=== PATIENT | male | born 1935 | race Caucasian/White ===

== ENCOUNTER 2017-02-03 04:51 | Inpatient (IN) | payer MEDICARE, BC ==
[2017-02-03] MEDS ORDERED: Sodium Chloride 0.9% 10 ML Syringe FLUSH PRN (05:18)
--- NOTE | 2017-02-03 05:49 | EDM.PDOC ---
ED HPI GENERAL MEDICAL PROBLEM - General Chief Complaint: General Stated Complaint: groin hurts and arm not working Time Seen by Provider: 02/03/17 05:15 Source of Information: Reports: Patient History Limitations: Reports: No Limitations - History of Present Illness INITIAL COMMENTS - FREE TEXT/NARRATIVE: Started having groin pain, 2 weeks ago. This morning he began having trouble walking and noticed right upper extremity weakness and numbness Onset: Gradual Duration: Week(s):. No: Constant Location: Reports: Upper Extremity, Left, Lower Extremity, Left Quality: Reports: Dull Severity: Moderate Groin Pain Score (Numeric/FACES): 8 - Related Data Allergies Allergy/AdvReac Type Severity Reaction Status Date / Time acetaminophen [From NyQuil] Allergy Itching Verified 02/03/17 04:58 dextromethorphan HBr Allergy Itching Verified 02/03/17 04:58 [From NyQuil] doxylamine succinate Allergy Itching Verified 02/03/17 04:58 [From NyQuil] lisinopril Allergy Itching Verified 02/03/17 04:58 pseudoephedrine HCl Allergy Itching Verified 02/03/17 04:58 [From NyQuil] tape Allergy Cannot Uncoded 02/03/17 04:58 Remember Home Meds: Home Meds Brinzolamide [Azopt 1% Ophth Susp] 1 drop EYEBOTH BID 07/21/14 [History] Travoprost [Travatan Z 0.004% Ophth Soln] 1 drop EYEBOTH DAILY 07/21/14 [History ] Aspirin [Ecotrin] 325 mg PO DAILY 05/09/16 [History] Digoxin 125 mcg PO DAILY 05/09/16 [History] Insulin Aspart [NovoLOG] 6 unit SUBCUT WITHBREAKFAST 05/09/16 [History] Insulin Aspart [NovoLOG] 6 unit SUBCUT WITHDINNER 05/09/16 [History] Losartan [Cozaar] 50 mg PO DAILY 05/09/16 [History] Magnesium 500 mg PO DAILY 05/09/16 [History] Metoprolol Succinate 100 mg PO BID 05/09/16 [History] Nitroglycerin [Nitrostat] 0.4 mg SL ASDIRECTED 05/09/16 [History] Simvastatin [Zocor] 40 mg PO BEDTIME 05/09/16 [History] Triamcinolone Acetonide 0 gm TOP ASDIRECTED PRN 05/09/16 [History] Warfarin [Coumadin] 2.5 mg PO WE 05/09/16 [History] Warfarin [Coumadin] 5 mg PO SUMOTUTHFRSA 05/09/16 [History] Fluconazole [Diflucan] 100 mg PO DAILY #14 tablet 05/11/16 [Rx] hydrOXYzine HCl [Atarax] 25 mg PO TID #60 tablet 05/11/16 [Rx] Past Medical History HEENT History: Reports: Glaucoma Cardiovascular History: Reports: Afib, Bypass, Heart Failure, Heart Valve Replacement, High Cholesterol, Hypertension, IN, Stents Gastrointestinal History: Reports: GERD Genitourinary History: Reports: Retention, Urinary Musculoskeletal History: Reports: Arthritis, Fracture Neurological History: Reports: Neuropathy, Diabetic, Vertigo Endocrine/Metabolic History: Reports: Diabetes, Type II Hematologic History: Reports: Blood Transfusion(s) Dermatologic History: Reports: Benign Melanoma, Other (See Below) Other Dermatologic History: frequent rashes - Past Surgical History Cardiovascular Surgical History: Reports: Coronary Artery Bypass, Coronary Artery Stent, Valve Replacement Musculoskeletal Surgical History: Reports: Hip Replacement Social & Family History - Tobacco Use Smoking Status *Q: Former Smoker Years of Tobacco use: 40 Used Tobacco, but Quit: No Month Tobacco Last Used: 2005 - Recreational Drug Use Recreational Drug Use: No ED ROS GENERAL - Review of Systems Review Of Systems: See Below Constitutional: Reports: No Symptoms HEENT: Reports: No Symptoms Respiratory: Reports: Shortness of Breath, Wheezing GI/Abdominal: Reports: No Symptoms Musculoskeletal: Reports: Leg Pain Skin: Reports: No Symptoms Neurological: Reports: Confusion, Numbness, Difficulty Walking, Weakness Psychiatric: Reports: Anxiety ED EXAM, GENERAL - Physical Exam Exam: See Below Exam Limited By: No Limitations General Appearance: Alert, WD/WN, Anxious Ears: Normal External Exam Nose: Normal Inspection Throat/Mouth: Normal Inspection Head: Atraumatic, Normocephalic Neurological: Abnormal Gait, Abnormal Reflexes, Sensory/Motor Deficit, Other ( Patient is unable to ambulate. He cannot control is right leg, and is very unsteady on his feet. ) Skin Exam: Warm, Dry Course - Vital Signs Last Recorded V/S: Last Vital Signs Temp 97.4 F 02/03/17 04:54 Pulse 97 02/03/17 05:23 Resp 20 02/03/17 04:54 BP 144/99 H 02/03/17 05:23 Pulse Ox 95 02/03/17 04:54 - Orders/Labs/Meds Orders: Active Orders 24 hr Category Date Time Status EKG Documentation Completion [RC] STAT Care 02/03/17 05:24 Active RT Aerosol Therapy [RC] ASDIRECTED Care 02/03/17 06:05 Active Chest 2V [CR] Stat Exams 02/03/17 05:41 Taken Head wo Cont [CT] Stat Exams 02/03/17 05:18 Taken Sodium Chloride 0.9% [Saline Flush] Med 02/03/17 05:18 Active 10 ml FLUSH ASDIRECTED PRN Saline Lock Insert [OM.PC] Routine Oth 02/03/17 05:18 Ordered EKG 12 Lead [EK] Routine Ther 02/03/17 05:18 Stop Req Medication Orders Sodium Chloride (Saline Flush) 10 ml FLUSH ASDIRECTED PRN PRN Reason: Keep Vein Open Labs: Laboratory Tests 02/03/17 02/03/17 02/03/17 Range/Units 05:18 05:18 05:18 WBC 7.5 (5.0-10.0) 10^3/uL RBC 4.68 (4.50-6.00) 10^6/uL Hgb 12.8 L (14.0-18.0) g/dL Hct 41.3 (40.0-54.0) % MCV 88.2 (82.0-94.0) fL MCH 27.4 (27.0-32.0) pg MCHC 31.0 L (33.0-38.0) g/dL RDW Coeff of Shi 13.3 (11.0-15.0) % Plt Count 174 (150-400) 10^3/uL Add Manual Diff Yes Band Neutrophils % 57 H (0-5) % Lymphocytes % (Manual) 18 L (21-55) % Monocytes % (Manual) 24 H (2-12) % Eosinophils % (Manual) 1 (0-5) % Absolute Neutrophils 4.28 (1.80-7.00) 10^3/uL Lymphocytes # (Manual) 1.35 (1.00-4.80) 10^3/uL Monocytes # (Manual) 1.80 H (0.00-0.80) 10^3/uL Eosinophils # (Manual) 0.08 (0.00-0.45) 10^3/uL PT 15.4 H (9.7-12.3) SEC INR 1.41 H (0.92-1.18) D-Dimer, Quantitative 1.57 H (0.00-0.50) Sodium 141 (136-145) mEq/L Potassium 4.1 (3.5-5.0) mEq/L Chloride 103 (98-106) mEq/L Carbon Dioxide 28 (21-32) mmol/L BUN 21 H (7-18) mg/dL Creatinine 1.3 (0.7-1.3) mg/dL Est Cr Clr Drug Dosing 42.38 mL/min Estimated GFR (MDRD) 53 L (>=60) mL/min Glucose 203 H (75-99) mg/dL Calcium 8.5 (8.4-10.1) mg/dL Total Bilirubin 0.9 (0.0-1.0) mg/dL AST 19 (15-37) U/L ALT 20 (12-78) U/L Alkaline Phosphatase 73 (46-116) U/L Ghe-K-Qxjwuzdchhl Pept (0-1000) pg/nL Total Protein 7.5 (6.4-8.2) g/dL Albumin 3.3 L (3.4-5.0) g/dL Urine Color (YELLOW) Urine Appearance (CLEAR) Urine pH (4.5-8.0) Ur Specific [place] (1.003-1.020) Urine Protein (NEGATIVE) mg/dL Urine Glucose (UA) (NEGATIVE) mg/dL Urine Ketones (NEGATIVE) mg/dL Urine Occult Blood (NEGATIVE) Urine Nitrite (NEGATIVE) Urine Bilirubin (NEGATIVE) Urine Urobilinogen (0.2-1.0) EU/dL Ur Leukocyte Esterase (NEGATIVE) Urine RBC (0-5) /HPF Urine WBC (0-5) /HPF Ur Squamous Epith Cells (NOT SEEN) /HPF Amorphous Sediment (NOT SEEN) /HPF 02/03/17 02/03/17 Range/Units 06:05 06:10 WBC (5.0-10.0) 10^3/uL RBC (4.50-6.00) 10^6/uL Hgb (14.0-18.0) g/dL Hct (40.0-54.0) % MCV (82.0-94.0) fL MCH (27.0-32.0) pg MCHC (33.0-38.0) g/dL RDW Coeff of Shi (11.0-15.0) % Plt Count (150-400) 10^3/uL Add Manual Diff Band Neutrophils % (0-5) % Lymphocytes % (Manual) (21-55) % Monocytes % (Manual) (2-12) % Eosinophils % (Manual) (0-5) % Absolute Neutrophils (1.80-7.00) 10^3/uL Lymphocytes # (Manual) (1.00-4.80) 10^3/uL Monocytes # (Manual) (0.00-0.80) 10^3/uL Eosinophils # (Manual) (0.00-0.45) 10^3/uL PT (9.7-12.3) SEC INR (0.92-1.18) D-Dimer, Quantitative (0.00-0.50) Sodium (136-145) mEq/L Potassium (3.5-5.0) mEq/L Chloride (98-106) mEq/L Carbon Dioxide (21-32) mmol/L BUN (7-18) mg/dL Creatinine (0.7-1.3) mg/dL Est Cr Clr Drug Dosing mL/min Estimated GFR (MDRD) (>=60) mL/min Glucose (75-99) mg/dL Calcium (8.4-10.1) mg/dL Total Bilirubin (0.0-1.0) mg/dL AST (15-37) U/L ALT (12-78) U/L Alkaline Phosphatase (46-116) U/L Asr-T-Bzueqiyqiis Pept 3078 H (0-1000) pg/nL Total Protein (6.4-8.2) g/dL Albumin (3.4-5.0) g/dL Urine Color Dark yellow (YELLOW) Urine Appearance Clear (CLEAR) Urine pH 5.5 (4.5-8.0) Ur Specific [place] 1.023 H (1.003-1.020) Urine Protein 100 H (NEGATIVE) mg/dL Urine Glucose (UA) 100 H (NEGATIVE) mg/dL Urine Ketones Negative (NEGATIVE) mg/dL Urine Occult Blood Negative (NEGATIVE) Urine Nitrite Negative (NEGATIVE) Urine Bilirubin Negative (NEGATIVE) Urine Urobilinogen 0.2 (0.2-1.0) EU/dL Ur Leukocyte Esterase Trace H (NEGATIVE) Urine RBC Not seen (0-5) /HPF Urine WBC 20-30 H (0-5) /HPF Ur Squamous Epith Cells Occasional H (NOT SEEN) /HPF Amorphous Sediment Occasional H (NOT SEEN) /HPF Meds: Medications Generic Name Dose Route Start Last Admin Trade Name Freq PRN Reason Stop Dose Admin Sodium Chloride 10 ml 02/03/17 05:18 Saline Flush FLUSH ASDIRECTED PRN Keep Vein Open Discontinued Medications Generic Name Dose Route Start Last Admin Trade Name Freq PRN Reason Stop Dose Admin Levalbuterol HCl 1.25 mg 02/03/17 06:05 02/03/17 06:08 Xopenex NEB 02/03/17 06:06 1.25 mg ONETIME ONE Administration Departure - Departure Time of Disposition: 06:44 Disposition: Admitted As Inpatient 65 Condition: fair Clinical Impression: TIA (transient ischemic attack) - Discharge Information Referrals: Uri Epstein MD [Primary Care Provider] - Forms: ED Department Discharge Additional Instructions: Please use this ER note as My admission H&P - My Orders Last 24 Hours: My Active Orders 02/03/17 05:18 Head wo Cont [CT] Stat Sodium Chloride 0.9% [Saline Flush] 10 ml FLUSH ASDIRECTED PRN Saline Lock Insert [OM.PC] Routine EKG 12 Lead [EK] Routine 02/03/17 05:24 EKG Documentation Completion [RC] STAT 02/03/17 05:41 Chest 2V [CR] Stat 02/03/17 06:05 RT Aerosol Therapy [RC] ASDIRECTED - Assessment/Plan Last 24 Hours: My Active Orders 02/03/17 05:18 Head wo Cont [CT] Stat Sodium Chloride 0.9% [Saline Flush] 10 ml FLUSH ASDIRECTED PRN Saline Lock Insert [OM.PC] Routine EKG 12 Lead [EK] Routine 02/03/17 05:24 EKG Documentation Completion [RC] STAT 02/03/17 05:41 Chest 2V [CR] Stat 02/03/17 06:05 RT Aerosol Therapy [RC] ASDIRECTED
[2017-02-03] MEDS ORDERED: Levalbuterol HCl 1.25 MG/3 ML Neb NEB ONE (06:05)
[2017-02-03] MEDS ORDERED: Ondansetron 4 MG Tab.DIS PO PRN (06:50)
[2017-02-03] MEDS ORDERED: hydrOXYzine HCl 25 MG Tab PO PRN (06:57)
[2017-02-03] MEDS ORDERED: Warfarin 5 MG Tab PO SCH (07:00)
[2017-02-03] MEDS ORDERED: Enoxaparin 40 MG/0.4 ML Syringe SUBCUT SCH (07:00)
[2017-02-03] MEDS ORDERED: Nitroglycerin 0.4 MG Tab.SL SL SCH (07:00)
[2017-02-03] MEDS ORDERED: Furosemide 40 MG/4 ML VIAL IVPUSH SCH (07:15)
[2017-02-03] MEDS ORDERED: Non-Formulary Medication 1 Each (Magnesium [Magnesium] 500 MG) PO SCH (08:00)
[2017-02-03] MEDS ORDERED: INSULIN NPH HUM SQ SCH (08:00)
[2017-02-03] MEDS ORDERED: Non-Formulary Medication 1 Each (Metoprolol Succinate [Metoprolol Succinate] 100 MG) PO SCH (08:00)
[2017-02-03] MEDS ORDERED: Non-Formulary Medication 1 Each (Travoprost [Travatan Z 0.004% Ophth Soln] 1 DROP) EYEBOTH SCH (08:00)
[2017-02-03] MEDS ORDERED: Non-Formulary Medication 1 Each (Losartan [Cozaar] 50 MG) PO SCH (08:00)
[2017-02-03] MEDS ORDERED: [UNRECOGNIZED DRUG - OTHER] SQ SCH (08:00)
[2017-02-03] MEDS ORDERED: Insulin Detemir 100 Units/ML 3 ML Pen SUBCUT SCH (08:00)
[2017-02-03] MEDS ORDERED: REG INSULIN SQ SCH (08:00)
[2017-02-03] MEDS: Aspirin 325 MG Tab.EC PO SCH (08:28)
[2017-02-03] MEDS: Digoxin 125 MCG Tab PO SCH (08:28)
[2017-02-03] MEDS: Non-Formulary Medication 1 Each (Brinzolamide [Azopt 1% Ophth Susp] 1 DROP) EYEBOTH SCH ×2 (08:29→20:02)
[2017-02-03] MEDS: Insulin Aspart 100 Units/ML 3 ML Pen SUBCUT SCH ×4 (08:36→20:28)
[2017-02-03] MEDS: Metoprolol Succinate 100 MG Tab.ER PO SCH ×2 (09:55→20:00)
[2017-02-03] MEDS: Losartan 25 MG Tab PO SCH (09:56)
[2017-02-03] MEDS: Albuterol/Ipratropium 3.0-0.5 MG/3 ML Neb Soln NEB PRN ×2 (17:18→21:56)
[2017-02-03] MEDS ORDERED: Ciprofloxacin 500 MG Tab PO SCH (19:00)
[2017-02-03] MEDS: Ciprofloxacin 500 MG Tab PO SCH (20:00)
[2017-02-03] MEDS: Simvastatin 40 MG Tab PO SCH (20:00)
[2017-02-03] MEDS: Latanoprost 0.005% Ophth Soln 2.5 ML Bottle EYEBOTH SCH (20:01)
[2017-02-03] MEDS: Insulin Detemir 100 Units/ML 3 ML Pen SUBCUT SCH (20:01)
[2017-02-04] MEDS: Non-Formulary Medication 1 Each (Brinzolamide [Azopt 1% Ophth Susp] 1 DROP) EYEBOTH SCH ×2 (07:34→20:02)
[2017-02-04] MEDS: Metoprolol Succinate 100 MG Tab.ER PO SCH ×2 (07:35→19:56)
[2017-02-04] MEDS: Aspirin 325 MG Tab.EC PO SCH (07:35)
[2017-02-04] MEDS: Digoxin 125 MCG Tab PO SCH (07:36)
[2017-02-04] MEDS: Losartan 25 MG Tab PO SCH (07:37)
[2017-02-04] MEDS: Ciprofloxacin 500 MG Tab PO SCH ×2 (07:37→19:56)
[2017-02-04] MEDS: Furosemide 40 MG/4 ML VIAL IVPUSH SCH (07:38)
[2017-02-04] MEDS: Enoxaparin 40 MG/0.4 ML Syringe SUBCUT SCH (07:38)
[2017-02-04] MEDS: Insulin Aspart 100 Units/ML 3 ML Pen SUBCUT SCH ×4 (08:11→20:00)
[2017-02-04] MEDS: Albuterol/Ipratropium 3.0-0.5 MG/3 ML Neb Soln NEB PRN ×3 (09:35→20:00)
[2017-02-04] MEDS ORDERED: Warfarin 5 MG Tab PO SCH (12:00)
--- NOTE | 2017-02-04 12:23 | PCM.PN ---
- General Info Date of Service: 02/04/17 Admission Dx/Problem (Free Text): Sitting up at bedside drinking coffee. Still having significant right sided weakness, and lacks the ability to walk without assistance. At this point I am convinced that he has had a stroke that did not show up on CT. Will order MRI of the brain for this week, then evaluate by PT for rehab, or transfer to another facility for more intensive rehab. Functional Status: Reports: pain controlled - Review of Systems General: Reports: No Symptoms HEENT: Reports: no symptoms Pulmonary: Reports: no symptoms Cardiovascular: Reports: No Symptoms Gastrointestinal: Reports: No symptoms Musculoskeletal: Reports: no symptoms Skin: Reports: no symptoms Neurological: Reports: Difficulty Walking, Weakness, Gait Disturbance Psychiatric: Reports: no symptoms - Patient Data Vitals - most recent: Last Vital Signs Temp 95.7 F 02/04/17 08:00 Pulse 57 L 02/04/17 08:00 Resp 16 02/04/17 08:00 BP 136/75 02/04/17 08:00 Pulse Ox 94 L 02/04/17 08:00 Weight - most recent: 194 lb 1.6 oz I&O - last 24 hours: Intake & Output 02/03/17 02/04/17 02/04/17 22:59 06:59 14:59 Intake Total 500 Output Total 275 Balance 225 Lab Results last 24 hrs: Laboratory Results - last 24 hr 02/03/17 02/03/17 02/04/17 Range/Units 17:13 20:20 07:20 WBC (5.0-10.0) 10^3/uL RBC (4.50-6.00) 10^6/uL Hgb (14.0-18.0) g/dL Hct (40.0-54.0) % MCV (82.0-94.0) fL MCH (27.0-32.0) pg MCHC (33.0-38.0) g/dL RDW Coeff of Shi (11.0-15.0) % Plt Count (150-400) 10^3/uL Neut % (Auto) (35-85) % Lymph % (Auto) (10-55) % [place] % (Auto) (0-16) % Eos % (Auto) (0-5) % Baso % (Auto) (0-3) % Neut # (Auto) (1.80-7.00) 10^3/uL Lymph # (Auto) (1.00-4.80) 10^3/uL [place] # (Auto) (0.00-0.80) 10^3/uL Eos # (Auto) (0.00-0.45) 10^3/uL Baso # (Auto) 10^3/uL Sodium (136-145) mEq/L Potassium (3.5-5.0) mEq/L Chloride (98-106) mEq/L Carbon Dioxide (21-32) mmol/L BUN (7-18) mg/dL Creatinine (0.7-1.3) mg/dL Est Cr Clr Drug Dosing mL/min Estimated GFR (MDRD) (>=60) mL/min Glucose (75-99) mg/dL POC Glucose 198 H 261 H 157 H (75-105) mg/dl Calcium (8.4-10.1) mg/dL Total Bilirubin (0.0-1.0) mg/dL AST (15-37) U/L ALT (12-78) U/L Alkaline Phosphatase (46-116) U/L Total Protein (6.4-8.2) g/dL Albumin (3.4-5.0) g/dL 02/04/17 02/04/17 02/04/17 Range/Units 07:30 07:30 11:38 WBC 8.2 (5.0-10.0) 10^3/uL RBC 4.91 (4.50-6.00) 10^6/uL Hgb 13.6 L (14.0-18.0) g/dL Hct 43.5 (40.0-54.0) % MCV 88.6 (82.0-94.0) fL MCH 27.7 (27.0-32.0) pg MCHC 31.3 L (33.0-38.0) g/dL RDW Coeff of Shi 13.5 (11.0-15.0) % Plt Count 188 (150-400) 10^3/uL Neut % (Auto) 64.9 (35-85) % Lymph % (Auto) 11.3 (10-55) % [place] % (Auto) 20.6 H (0-16) % Eos % (Auto) 2.7 (0-5) % Baso % (Auto) 0.5 (0-3) % Neut # (Auto) 5.35 (1.80-7.00) 10^3/uL Lymph # (Auto) 0.93 L (1.00-4.80) 10^3/uL [place] # (Auto) 1.70 H (0.00-0.80) 10^3/uL Eos # (Auto) 0.22 (0.00-0.45) 10^3/uL Baso # (Auto) 0.04 10^3/uL Sodium 138 (136-145) mEq/L Potassium 3.8 (3.5-5.0) mEq/L Chloride 100 (98-106) mEq/L Carbon Dioxide 29 (21-32) mmol/L BUN 19 H (7-18) mg/dL Creatinine 1.3 (0.7-1.3) mg/dL Est Cr Clr Drug Dosing 42.38 mL/min Estimated GFR (MDRD) 53 L (>=60) mL/min Glucose 164 H (75-99) mg/dL POC Glucose 269 H (75-105) mg/dl Calcium 9.0 (8.4-10.1) mg/dL Total Bilirubin 1.2 H (0.0-1.0) mg/dL AST 19 (15-37) U/L ALT 20 (12-78) U/L Alkaline Phosphatase 76 (46-116) U/L Total Protein 7.7 (6.4-8.2) g/dL Albumin 3.3 L (3.4-5.0) g/dL Med Orders - Current: Current Medications Albuterol/Ipratropium (Duoneb 3.0-0.5 Mg/3 Ml) 3 ml NEB Q4H PRN PRN Reason: Shortness Of Breath/wheezing Last Admin: 02/04/17 09:35 Dose: 3 ml Aspirin (Ecotrin) 325 mg PO DAILY [facility] Last Admin: 02/04/17 07:35 Dose: 325 mg Ciprofloxacin (Ciprofloxacin Hcl) 500 mg PO BID [facility] Last Admin: 02/04/17 07:37 Dose: 500 mg Digoxin (Lanoxin) 125 mcg PO DAILY [facility] Last Admin: 02/04/17 07:36 Dose: 125 mcg Enoxaparin Sodium (Lovenox) 40 mg SUBCUT Q24H [facility] Last Admin: 02/04/17 07:38 Dose: 40 mg Furosemide (Lasix) 40 mg IVPUSH Q24H [facility] Last Admin: 02/04/17 07:38 Dose: 40 mg Hydroxyzine HCl (Atarax) 25 mg PO TID PRN PRN Reason: Itching Last Admin: 02/03/17 08:28 Dose: 25 mg Insulin Aspart (Novolog) 0 unit SUBCUT WITHMEALSANDBED [facility] PRN Reason: Protocol Last Admin: 02/04/17 08:11 Dose: 2 units Insulin Detemir (Levemir) 20 unit SUBCUT BEDTIME [facility] Last Admin: 02/03/17 20:01 Dose: 20 units Latanoprost (Xalatan 0.005% Ophth Soln) 0 ml EYEBOTH BEDTIME [facility] Last Admin: 02/03/17 20:01 Dose: 1 drop Losartan Potassium (Cozaar) 50 mg PO DAILY [facility] Last Admin: 02/04/17 07:37 Dose: 50 mg Magnesium Oxide (Magnesium Oxide) 500 mg PO DAILY@1200 [facility] Last Admin: 02/03/17 12:07 Dose: 500 mg Metoprolol Succinate (Toprol Xl) 100 mg PO BID [facility] Last Admin: 02/04/17 07:35 Dose: 100 mg Nitroglycerin (Nitrostat) 0.4 mg SL ASDIRECTED [facility] Non-Formulary Medication (Brinzolamide [Azopt 1% Ophth Susp]) 1 drop EYEBOTH BID [facility] Last Admin: 02/04/17 07:34 Dose: Not Given Ondansetron HCl (Zofran Odt) 4 mg PO Q4H PRN PRN Reason: nausea, able to take PO Simvastatin (Zocor) 40 mg PO BEDTIME [facility] Last Admin: 02/03/17 20:00 Dose: 40 mg Sodium Chloride (Saline Flush) 10 ml FLUSH ASDIRECTED PRN PRN Reason: Keep Vein Open Warfarin Sodium (Coumadin) 5 mg PO SuMoTuThFrSa@1200 [facility] Discontinued Medications Ciprofloxacin (Ciprofloxacin Hcl) 500 mg PO 0700,1900 [facility] Enoxaparin Sodium (Lovenox) 40 mg SUBCUT Q12H [facility] Last Admin: 02/03/17 08:30 Dose: 40 mg Furosemide (Lasix) 40 mg IVPUSH Q24H [facility] Last Admin: 02/03/17 08:32 Dose: 40 mg Insulin Detemir (Levemir) 20 unit SUBCUT DAILY [facility] Last Admin: 02/03/17 08:31 Dose: Not Given Levalbuterol HCl (Xopenex) 1.25 mg NEB ONETIME ONE Stop: 02/03/17 06:06 Last Admin: 02/03/17 06:08 Dose: 1.25 mg Non-Formulary Medication (Insulin Nph Hum/Reg Insulin Hm [Humulin 70/30 Kwikpen] ) 30 units SQ BID [facility] Non-Formulary Medication (Losartan [Cozaar]) 50 mg PO DAILY [facility] Last Admin: 02/03/17 09:50 Dose: Not Given Non-Formulary Medication (Magnesium [Magnesium]) 500 mg PO DAILY [facility] Last Admin: 02/03/17 09:50 Dose: Not Given Non-Formulary Medication (Metoprolol Succinate [Metoprolol Succinate]) 100 mg PO BID [facility] Last Admin: 02/03/17 09:52 Dose: Not Given Non-Formulary Medication (Travoprost [Travatan Z 0.004% Ophth Soln]) 1 drop EYEBOTH DAILY [facility] Last Admin: 02/03/17 08:30 Dose: Not Given Warfarin Sodium (Coumadin) 5 mg PO SUMOTUTHFRSA [facility] Last Admin: 02/03/17 08:42 Dose: 5 mg - Problem List Review Problem List Initiated/Reviewed/Updated: Yes - My Orders Last 24 Hours: My Active Orders 02/03/17 12:00 Magnesium Oxide 500 mg PO DAILY@1200 02/03/17 20:00 Ciprofloxacin [Ciprofloxacin HCl] 500 mg PO BID Insulin Detemir [Levemir] 20 unit SUBCUT BEDTIME Latanoprost [Xalatan 0.005% Ophth Soln] 0 ml EYEBOTH BEDTIME 02/04/17 08:00 Enoxaparin [Lovenox] 40 mg SUBCUT Q24H Furosemide [Lasix] 40 mg IVPUSH Q24H 02/04/17 12:00 Warfarin [Coumadin] 5 mg PO SuMoTuThFrSa@1200 02/05/17 05:00 Brain wo Cont [MR] Routine
[2017-02-04] MEDS: Simvastatin 40 MG Tab PO SCH (19:56)
[2017-02-04] MEDS: Insulin Detemir 100 Units/ML 3 ML Pen SUBCUT SCH (20:01)
[2017-02-04] MEDS: Latanoprost 0.005% Ophth Soln 2.5 ML Bottle EYEBOTH SCH (20:01)
[2017-02-05] MEDS: Non-Formulary Medication 1 Each (Brinzolamide [Azopt 1% Ophth Susp] 1 DROP) EYEBOTH SCH ×2 (08:04→19:37)
[2017-02-05] MEDS: Digoxin 125 MCG Tab PO SCH (08:05)
[2017-02-05] MEDS: Metoprolol Succinate 100 MG Tab.ER PO SCH ×2 (08:05→19:40)
[2017-02-05] MEDS: Losartan 25 MG Tab PO SCH (08:05)
[2017-02-05] MEDS: Aspirin 325 MG Tab.EC PO SCH (08:06)
[2017-02-05] MEDS: Ciprofloxacin 500 MG Tab PO SCH ×2 (08:06→19:41)
[2017-02-05] MEDS: Enoxaparin 40 MG/0.4 ML Syringe SUBCUT SCH (08:07)
[2017-02-05] MEDS: Furosemide 40 MG/4 ML VIAL IVPUSH SCH (08:09)
[2017-02-05] MEDS: Insulin Aspart 100 Units/ML 3 ML Pen SUBCUT SCH ×4 (08:14→20:13)
[2017-02-05] MEDS ORDERED: Iopamidol 755 Mg/ML 100 ML Bottle IVPUSH ONE (08:51)
--- NOTE | 2017-02-05 10:38 | PN ---
DATE: 02/05/2017 S: Juan Daniel Amin an elderly gentleman came in with some pain in his right groin, numbness of his right leg and right upper extremity, admitted with a diagnosis of CVA-TIA. CT of the head sounds like it was normal. O: GENERAL: On examination today, he has full range of motion of everything, just mildly confused. NECK: Otherwise, neck was supple. CHEST: Clear. CARDIAC: Irregularly irregular. ABDOMEN: Soft. EXTREMITIES: Unremarkable. He did have pain over the lower lumbar spine. ASSESSMENT: TRANSIENT ISCHEMIC ATTACK-CEREBROVASCULAR ACCIDENT, ATRIAL FIBRILLATION, LEFT VENTRICULAR CONGESTIVE HEART FAILURE. I WILL GET A CTA OF HIS NECK AND HEAD TODAY. THIS WILL TAKE A BETTER LOOK AT WHAT IS GOING ON. HE ALSO APPEARS TO HAVE MILD URINARY TRACT INFECTION AND PRESENTLY ON CIPRO FOR THAT. REGINALD/RYLEE /[id number]
[2017-02-05] MEDS: Levalbuterol HCl 1.25 MG/3 ML Neb NEB SCH ×3 (11:49→20:10)
[2017-02-05] MEDS ORDERED: Warfarin 5 MG Tab PO SCH (12:00)
[2017-02-05] MEDS ORDERED: Warfarin 2.5 MG Tab PO ONE (15:30)
[2017-02-05] MEDS: Simvastatin 40 MG Tab PO SCH (19:41)
[2017-02-05] MEDS: Latanoprost 0.005% Ophth Soln 2.5 ML Bottle EYEBOTH SCH (19:41)
[2017-02-05] MEDS: Insulin Detemir 100 Units/ML 3 ML Pen SUBCUT SCH (20:13)
[2017-02-06] MEDS ORDERED: Warfarin 2 MG Tab PO SCH (08:00)
[2017-02-06] MEDS: Furosemide 40 MG/4 ML VIAL IVPUSH SCH (08:15)
[2017-02-06] MEDS: Digoxin 125 MCG Tab PO SCH (08:18)
[2017-02-06] MEDS: Ciprofloxacin 500 MG Tab PO SCH ×2 (08:18→19:29)
[2017-02-06] MEDS: Losartan 25 MG Tab PO SCH (08:19)
[2017-02-06] MEDS: Aspirin 325 MG Tab.EC PO SCH (08:19)
[2017-02-06] MEDS: Metoprolol Succinate 100 MG Tab.ER PO SCH ×2 (08:19→19:29)
[2017-02-06] MEDS: Insulin Aspart 100 Units/ML 3 ML Pen SUBCUT SCH ×5 (08:20→20:50)
[2017-02-06] MEDS: Non-Formulary Medication 1 Each (Brinzolamide [Azopt 1% Ophth Susp] 1 DROP) EYEBOTH SCH ×2 (08:21→19:25)
[2017-02-06] MEDS: Levalbuterol HCl 1.25 MG/3 ML Neb NEB SCH ×3 (09:50→20:50)
[2017-02-06] MEDS: Enoxaparin 40 MG/0.4 ML Syringe SUBCUT SCH (10:24)
[2017-02-06] MEDS: Warfarin 2.5 MG Tab PO SCH (12:06)
--- NOTE | 2017-02-06 14:41 | PN ---
DATE: 02/06/2017 S: Juan Daniel Amin is in with multiple CVAs. He seemed to be very stable today. O: NECK: Supple. CHEST: Clear. CARDIAC: Irregular. ABDOMEN: Soft. EXTREMITIES: Full range of motion. ASSESSMENT: CEREBROVASCULAR ACCIDENTS. P: We will continue anticoagulation, trying to get his INR above 2, which it is. Pending are CTAs of neck and head and MRI. REGINALD/RYLEE /[id number]
[2017-02-06] MEDS: Simvastatin 40 MG Tab PO SCH (19:29)
[2017-02-06] MEDS: Latanoprost 0.005% Ophth Soln 2.5 ML Bottle EYEBOTH SCH (19:33)
[2017-02-06] MEDS ORDERED: Tamsulosin 0.4 MG Cap.ER PO SCH (20:00)
[2017-02-06] MEDS: Insulin Detemir 100 Units/ML 3 ML Pen SUBCUT SCH (20:52)
[2017-02-07] MEDS: Losartan 25 MG Tab PO SCH (07:54)
[2017-02-07] MEDS: Digoxin 125 MCG Tab PO SCH (07:54)
[2017-02-07] MEDS: Aspirin 325 MG Tab.EC PO SCH (07:54)
[2017-02-07] MEDS: Metoprolol Succinate 100 MG Tab.ER PO SCH (07:54)
[2017-02-07] MEDS: Ciprofloxacin 500 MG Tab PO SCH (07:54)
[2017-02-07] MEDS: Non-Formulary Medication 1 Each (Brinzolamide [Azopt 1% Ophth Susp] 1 DROP) EYEBOTH SCH (07:55)
[2017-02-07] MEDS: Furosemide 40 MG/4 ML VIAL IVPUSH SCH (07:55)
[2017-02-07] MEDS: Insulin Aspart 100 Units/ML 3 ML Pen SUBCUT SCH ×4 (07:56→12:08)
[2017-02-07] MEDS: Levalbuterol HCl 1.25 MG/3 ML Neb NEB SCH (08:34)
[2017-02-07 11:45] VITALS: BP 104/56
[2017-02-07] MEDS: Warfarin 2.5 MG Tab PO SCH (12:06)
[2017-02-07] MEDS ORDERED: Insulin Aspart 100 Units/ML 3 ML Pen SUBCUT SCH (17:30)
--- NOTE | 2017-02-08 07:55 | DISCH ---
HOSPITAL COURSE: Juan Daniel Amin, an elderly gentleman came in with multiple thromboembolic phenomenon. He was started on anticoagulation once on telemetry did quite nicely. At the time of discharge to swing bed, he still have difficulty lifting 1 foot, but otherwise he is fairly good. 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 I talked to the fruit checker, she said just to keep anticoagulating. CTA head and neck did not show any significant stenosis. Rest of the lab here in the hospital, blood sugars are coming more under control. CBCs are looking good. INRs are getting up in a good therapeutic range, they were not on admission. Urinalysis question a little bit of pyuria, so we started on Cipro, but I doubt that was any problem at all, so we will discontinue the Cipro. DISPOSITION: The patient now discharged to swing bed. Continue anticoagulation. Neuro checks and also physical therapy. DISCHARGE MEDICATIONS: Hospital medications except Cipro. DISCHARGE DIAGNOSIS: 1. THROMBOEMBOLIC STROKES. 2. ATRIAL FIBRILLATION. 3. LEFT VENTRICULAR SYSTOLIC CONGESTIVE HEART FAILURE. 4. HYPERTENSION. 5. HYPERLIPIDEMIA. 6. DIABETES MELLITUS. REGINALD/RYLEE /[id number]
== END 2017-02-07 15:00 | disposition swing bed (61) | DRG 65 ==
LOC: CC.ED 04:51 → CC.MS 07:07
PROVIDERS: ADMIT Nurse Practitioner Family; ATTEND General Practice
DX: G45.9 Transient cerebral ischemic attack, unspecified (principal); I63.8 Other cerebral infarction; I50.20 Unspecified systolic (congestive) heart failure; Z79.4 Long term (current) use of insulin; Z79.82 Long term (current) use of aspirin; Z79.01 Long term (current) use of anticoagulants; N39.0 Urinary tract infection, site not specified; I25.10 Atherosclerotic heart disease of native coronary artery without angina pectoris; Z95.1 Presence of aortocoronary bypass graft; Z95.5 Presence of coronary angioplasty implant and graft; I50.9 Heart failure, unspecified; Z95.2 Presence of prosthetic heart valve; E78.00 Pure hypercholesterolemia, unspecified; I48.91 Unspecified atrial fibrillation; I25.2 Old myocardial infarction; K21.9 Gastro-esophageal reflux disease without esophagitis; I10 Essential (primary) hypertension; E78.5 Hyperlipidemia, unspecified; E11.40 Type 2 diabetes mellitus with diabetic neuropathy, unspecified; Z88.8 Allergy status to other drugs, medicaments and biological substances; Z79.899 Other long term (current) drug therapy; Z87.891 Personal history of nicotine dependence
CPT/HCPCS: 36415; 70450; 70496; 70498; 70553; 71020; 80053; 80162; 81001; 82962; 83880; 85025; 85379; 85610; 93005; 93010; 93306; 94640; 94640-76; 97110-GP; 97161-GP; 99285; A9270-GY; A9579; J1650; J1815-GY; J1940; Q9967

== ENCOUNTER 2017-02-07 14:45 | Inpatient (IN) | payer MEDICARE, BC ==
[2017-02-07] MEDS ORDERED: Sodium Chloride 0.9% 10 ML Syringe FLUSH PRN (14:52)
[2017-02-07] MEDS ORDERED: Ondansetron 4 MG Tab.DIS PO PRN (14:52)
[2017-02-07] MEDS ORDERED: hydrOXYzine HCl 25 MG Tab PO PRN ×2 (14:52→16:33)
[2017-02-07] MEDS ORDERED: Nitroglycerin 0.4 MG Tab.SL SL PRN (14:52)
[2017-02-07] MEDS ORDERED: Nitroglycerin 0.4 MG Tab.SL SL SCH (16:45)
[2017-02-07] MEDS ORDERED: Triamcinolone Acetonide 0.1% Oint 15 GM Tube TOP PRN (17:00)
[2017-02-07] MEDS ORDERED: Insulin Aspart 100 Units/ML 3 ML Pen SUBCUT SCH (17:30)
[2017-02-07] MEDS: Insulin Aspart 100 Units/ML 3 ML Pen SUBCUT SCH ×3 (18:00→20:31)
[2017-02-07] MEDS: BRINZOLAMIDE 1% EYEBOTH SCH (19:29)
[2017-02-07] MEDS: Metoprolol Succinate 100 MG Tab.ER PO SCH (19:31)
[2017-02-07] MEDS: Tamsulosin 0.4 MG Cap.ER PO SCH (19:32)
[2017-02-07] MEDS: Simvastatin 40 MG Tab PO SCH (19:33)
[2017-02-07] MEDS: Latanoprost 0.005% Ophth Soln 2.5 ML Bottle EYEBOTH SCH (19:33)
[2017-02-07] MEDS ORDERED: REG INSULIN SQ SCH (20:00)
[2017-02-07] MEDS ORDERED: INSULIN NPH HUM SQ SCH (20:00)
[2017-02-07] MEDS ORDERED: Latanoprost 0.005% Ophth Soln 2.5 ML Bottle EYEBOTH SCH (20:00)
[2017-02-07] MEDS ORDERED: [UNRECOGNIZED DRUG - OTHER] SQ SCH (20:00)
[2017-02-07] MEDS ORDERED: Non-Formulary Medication 1 Each (Brinzolamide [Azopt 1% Ophth Susp] 1 DROP) EYEBOTH SCH (20:00)
[2017-02-07] MEDS ORDERED: Non-Formulary Medication 1 Each (Metoprolol Succinate [Metoprolol Succinate] 100 MG) PO SCH (20:00)
[2017-02-07] MEDS ORDERED: Simvastatin 40 MG Tab PO SCH (20:00)
[2017-02-07] MEDS: Levalbuterol HCl 1.25 MG/3 ML Neb NEB SCH (20:31)
[2017-02-07] MEDS: Insulin Detemir 100 Units/ML 3 ML Pen SUBCUT SCH (20:32)
[2017-02-08] MEDS: BRINZOLAMIDE 1% EYEBOTH SCH ×2 (07:33→19:38)
[2017-02-08] MEDS: Digoxin 125 MCG Tab PO SCH (07:34)
[2017-02-08] MEDS: Losartan 25 MG Tab PO SCH (07:35)
[2017-02-08] MEDS: Metoprolol Succinate 100 MG Tab.ER PO SCH ×2 (07:35→19:30)
[2017-02-08] MEDS: Furosemide 40 MG Tab PO SCH (07:35)
[2017-02-08] MEDS: Aspirin 325 MG Tab.EC PO SCH (07:36)
[2017-02-08] MEDS: Insulin Aspart 100 Units/ML 3 ML Pen SUBCUT SCH ×7 (07:37→21:04)
[2017-02-08] MEDS ORDERED: Furosemide 40 MG/4 ML VIAL IVPUSH SCH (08:00)
[2017-02-08] MEDS ORDERED: Non-Formulary Medication 1 Each (Magnesium [Magnesium] 500 MG) PO SCH (08:00)
[2017-02-08] MEDS ORDERED: Aspirin 325 MG Tab.EC PO SCH (08:00)
[2017-02-08] MEDS ORDERED: Non-Formulary Medication 1 Each (Losartan [Cozaar] 50 MG) PO SCH (08:00)
[2017-02-08] MEDS ORDERED: Digoxin 125 MCG Tab PO SCH (08:00)
[2017-02-08] MEDS: Levalbuterol HCl 1.25 MG/3 ML Neb NEB SCH (09:41)
[2017-02-08] MEDS ORDERED: Warfarin 5 MG Tab PO SCH (12:00)
[2017-02-08] MEDS ORDERED: Warfarin 2.5 MG Tab PO SCH (12:00)
[2017-02-08] MEDS: Warfarin 2.5 MG Tab PO SCH (12:19)
[2017-02-08] MEDS: Albuterol 0.083% 2.5 MG/3 ML Neb Soln NEB SCH ×2 (14:19→21:04)
[2017-02-08] MEDS: Tamsulosin 0.4 MG Cap.ER PO SCH (19:30)
[2017-02-08] MEDS: Simvastatin 40 MG Tab PO SCH (19:32)
[2017-02-08] MEDS: Insulin Detemir 100 Units/ML 3 ML Pen SUBCUT SCH (19:34)
[2017-02-08] MEDS: Latanoprost 0.005% Ophth Soln 2.5 ML Bottle EYEBOTH SCH (19:36)
[2017-02-09] MEDS: Losartan 25 MG Tab PO SCH (07:35)
[2017-02-09] MEDS: Digoxin 125 MCG Tab PO SCH (07:35)
[2017-02-09] MEDS: Metoprolol Succinate 100 MG Tab.ER PO SCH ×2 (07:35→19:39)
[2017-02-09] MEDS: Furosemide 40 MG Tab PO SCH (07:35)
[2017-02-09] MEDS: Aspirin 325 MG Tab.EC PO SCH (07:35)
[2017-02-09] MEDS: BRINZOLAMIDE 1% EYEBOTH SCH ×2 (07:36→19:38)
[2017-02-09] MEDS: Insulin Aspart 100 Units/ML 3 ML Pen SUBCUT SCH ×7 (08:21→20:32)
[2017-02-09] MEDS: Albuterol/Ipratropium 3.0-0.5 MG/3 ML Neb Soln NEB PRN (08:22)
[2017-02-09] MEDS: Albuterol 0.083% 2.5 MG/3 ML Neb Soln NEB SCH ×3 (08:23→20:33)
[2017-02-09] MEDS: Warfarin 2.5 MG Tab PO SCH (12:17)
[2017-02-09] MEDS: Tamsulosin 0.4 MG Cap.ER PO SCH (19:39)
[2017-02-09] MEDS: Latanoprost 0.005% Ophth Soln 2.5 ML Bottle EYEBOTH SCH (19:40)
[2017-02-09] MEDS: Simvastatin 40 MG Tab PO SCH (19:41)
[2017-02-09] MEDS: Insulin Detemir 100 Units/ML 3 ML Pen SUBCUT SCH (20:32)
[2017-02-10] MEDS: BRINZOLAMIDE 1% EYEBOTH SCH ×2 (08:11→20:05)
[2017-02-10] MEDS: Aspirin 325 MG Tab.EC PO SCH (08:11)
[2017-02-10] MEDS: Digoxin 125 MCG Tab PO SCH (08:11)
[2017-02-10] MEDS: Losartan 25 MG Tab PO SCH (08:11)
[2017-02-10] MEDS: Metoprolol Succinate 100 MG Tab.ER PO SCH ×2 (08:12→20:06)
[2017-02-10] MEDS: Insulin Aspart 100 Units/ML 3 ML Pen SUBCUT SCH ×7 (08:12→21:24)
[2017-02-10] MEDS: Furosemide 40 MG Tab PO SCH (08:12)
[2017-02-10] MEDS: Albuterol 0.083% 2.5 MG/3 ML Neb Soln NEB SCH ×3 (08:13→21:23)
[2017-02-10] MEDS: Warfarin 5 MG Tab PO SCH (12:03)
[2017-02-10] MEDS: Tamsulosin 0.4 MG Cap.ER PO SCH (20:06)
[2017-02-10] MEDS: Simvastatin 40 MG Tab PO SCH (20:06)
[2017-02-10] MEDS: Latanoprost 0.005% Ophth Soln 2.5 ML Bottle EYEBOTH SCH (20:08)
[2017-02-10] MEDS: Insulin Detemir 100 Units/ML 3 ML Pen SUBCUT SCH (21:25)
[2017-02-11] MEDS: Aspirin 325 MG Tab.EC PO SCH (08:28)
[2017-02-11] MEDS: Digoxin 125 MCG Tab PO SCH (08:28)
[2017-02-11] MEDS: Furosemide 40 MG Tab PO SCH (08:29)
[2017-02-11] MEDS: Losartan 25 MG Tab PO SCH (08:30)
[2017-02-11] MEDS: Insulin Aspart 100 Units/ML 3 ML Pen SUBCUT SCH ×7 (08:30→22:29)
[2017-02-11] MEDS: Metoprolol Succinate 100 MG Tab.ER PO SCH ×2 (08:31→20:11)
[2017-02-11] MEDS: BRINZOLAMIDE 1% EYEBOTH SCH ×2 (08:33→20:11)
[2017-02-11] MEDS: Albuterol 0.083% 2.5 MG/3 ML Neb Soln NEB SCH ×3 (08:38→22:30)
[2017-02-11] MEDS: Tamsulosin 0.4 MG Cap.ER PO SCH (20:11)
[2017-02-11] MEDS: Latanoprost 0.005% Ophth Soln 2.5 ML Bottle EYEBOTH SCH (20:11)
[2017-02-11] MEDS: Simvastatin 40 MG Tab PO SCH (20:11)
[2017-02-11] MEDS: Insulin Detemir 100 Units/ML 3 ML Pen SUBCUT SCH (22:28)
[2017-02-12] MEDS: Aspirin 325 MG Tab.EC PO SCH (07:37)
[2017-02-12] MEDS: Metoprolol Succinate 100 MG Tab.ER PO SCH ×2 (07:37→19:43)
[2017-02-12] MEDS: Losartan 25 MG Tab PO SCH (07:39)
[2017-02-12] MEDS: Digoxin 125 MCG Tab PO SCH (07:40)
[2017-02-12] MEDS: BRINZOLAMIDE 1% EYEBOTH SCH ×2 (07:40→19:43)
[2017-02-12] MEDS: Furosemide 40 MG Tab PO SCH (07:40)
[2017-02-12] MEDS: Insulin Aspart 100 Units/ML 3 ML Pen SUBCUT SCH ×7 (09:09→20:16)
[2017-02-12] MEDS: Albuterol 0.083% 2.5 MG/3 ML Neb Soln NEB SCH ×3 (09:45→20:16)
[2017-02-12] MEDS: Warfarin 5 MG Tab PO SCH (13:40)
[2017-02-12] MEDS: Tamsulosin 0.4 MG Cap.ER PO SCH (19:43)
[2017-02-12] MEDS: Simvastatin 40 MG Tab PO SCH (19:43)
[2017-02-12] MEDS: Insulin Detemir 100 Units/ML 3 ML Pen SUBCUT SCH (19:43)
[2017-02-12] MEDS: Latanoprost 0.005% Ophth Soln 2.5 ML Bottle EYEBOTH SCH (19:44)
[2017-02-13] MEDS: Losartan 25 MG Tab PO SCH (07:55)
[2017-02-13] MEDS: Furosemide 40 MG Tab PO SCH (07:59)
[2017-02-13] MEDS: Aspirin 325 MG Tab.EC PO SCH (08:00)
[2017-02-13] MEDS: Metoprolol Succinate 100 MG Tab.ER PO SCH ×2 (08:00→19:40)
[2017-02-13] MEDS: Digoxin 125 MCG Tab PO SCH (08:00)
[2017-02-13] MEDS: Insulin Aspart 100 Units/ML 3 ML Pen SUBCUT SCH ×7 (08:00→20:35)
[2017-02-13] MEDS: BRINZOLAMIDE 1% EYEBOTH SCH ×2 (08:01→19:41)
[2017-02-13] MEDS: Albuterol 0.083% 2.5 MG/3 ML Neb Soln NEB SCH ×3 (09:09→21:48)
[2017-02-13] MEDS: Warfarin 5 MG Tab PO SCH (12:28)
[2017-02-13] MEDS: Simvastatin 40 MG Tab PO SCH (19:40)
[2017-02-13] MEDS: Tamsulosin 0.4 MG Cap.ER PO SCH (19:40)
[2017-02-13] MEDS: Latanoprost 0.005% Ophth Soln 2.5 ML Bottle EYEBOTH SCH (19:42)
[2017-02-13] MEDS: Insulin Detemir 100 Units/ML 3 ML Pen SUBCUT SCH (20:34)
[2017-02-14] MEDS: Metoprolol Succinate 100 MG Tab.ER PO SCH ×2 (07:32→19:39)
[2017-02-14] MEDS: Aspirin 325 MG Tab.EC PO SCH (07:32)
[2017-02-14] MEDS: Furosemide 40 MG Tab PO SCH (07:32)
[2017-02-14] MEDS: Losartan 25 MG Tab PO SCH (07:32)
[2017-02-14] MEDS: Digoxin 125 MCG Tab PO SCH (07:32)
[2017-02-14] MEDS: Insulin Aspart 100 Units/ML 3 ML Pen SUBCUT SCH ×7 (07:35→21:21)
[2017-02-14] MEDS: BRINZOLAMIDE 1% EYEBOTH SCH ×2 (07:35→19:41)
[2017-02-14] MEDS: Albuterol 0.083% 2.5 MG/3 ML Neb Soln NEB SCH ×3 (09:25→20:06)
[2017-02-14] MEDS: Warfarin 5 MG Tab PO SCH (12:01)
[2017-02-14] MEDS: Tamsulosin 0.4 MG Cap.ER PO SCH (19:39)
[2017-02-14] MEDS: Simvastatin 40 MG Tab PO SCH (19:40)
[2017-02-14] MEDS: Latanoprost 0.005% Ophth Soln 2.5 ML Bottle EYEBOTH SCH (19:41)
[2017-02-14] MEDS: Insulin Detemir 100 Units/ML 3 ML Pen SUBCUT SCH (21:18)
[2017-02-15] MEDS: Digoxin 125 MCG Tab PO SCH (07:32)
[2017-02-15] MEDS: Aspirin 325 MG Tab.EC PO SCH (07:32)
[2017-02-15] MEDS: Furosemide 40 MG Tab PO SCH (07:33)
[2017-02-15] MEDS: Losartan 25 MG Tab PO SCH (07:33)
[2017-02-15] MEDS: Metoprolol Succinate 100 MG Tab.ER PO SCH ×2 (07:33→19:53)
[2017-02-15] MEDS: Insulin Aspart 100 Units/ML 3 ML Pen SUBCUT SCH ×7 (07:34→20:17)
[2017-02-15] MEDS: Albuterol/Ipratropium 3.0-0.5 MG/3 ML Neb Soln NEB PRN (09:20)
[2017-02-15] MEDS: Albuterol 0.083% 2.5 MG/3 ML Neb Soln NEB SCH ×3 (09:21→20:00)
[2017-02-15] MEDS: BRINZOLAMIDE 1% EYEBOTH SCH ×2 (12:28→19:56)
[2017-02-15] MEDS: Warfarin 5 MG Tab PO SCH (12:28)
[2017-02-15] MEDS: Simvastatin 40 MG Tab PO SCH (19:53)
[2017-02-15] MEDS: Tamsulosin 0.4 MG Cap.ER PO SCH (19:53)
[2017-02-15] MEDS: Latanoprost 0.005% Ophth Soln 2.5 ML Bottle EYEBOTH SCH (19:56)
[2017-02-15] MEDS: Insulin Detemir 100 Units/ML 3 ML Pen SUBCUT SCH (20:17)
[2017-02-16] MEDS: Metoprolol Succinate 100 MG Tab.ER PO SCH ×2 (07:31→19:24)
[2017-02-16] MEDS: Losartan 25 MG Tab PO SCH (07:31)
[2017-02-16] MEDS: Aspirin 325 MG Tab.EC PO SCH (07:31)
[2017-02-16] MEDS: Digoxin 125 MCG Tab PO SCH (07:44)
[2017-02-16] MEDS: Insulin Aspart 100 Units/ML 3 ML Pen SUBCUT SCH ×7 (07:44→20:14)
[2017-02-16] MEDS: BRINZOLAMIDE 1% EYEBOTH SCH ×2 (07:45→19:27)
[2017-02-16] MEDS: Furosemide 40 MG Tab PO SCH (07:49)
[2017-02-16] MEDS: Albuterol 0.083% 2.5 MG/3 ML Neb Soln NEB SCH ×3 (09:27→20:14)
[2017-02-16] MEDS: Warfarin 5 MG Tab PO SCH (11:56)
[2017-02-16] MEDS: Tamsulosin 0.4 MG Cap.ER PO SCH (19:24)
[2017-02-16] MEDS: Simvastatin 40 MG Tab PO SCH (19:25)
[2017-02-16] MEDS: Latanoprost 0.005% Ophth Soln 2.5 ML Bottle EYEBOTH SCH (19:26)
[2017-02-16] MEDS: Insulin Detemir 100 Units/ML 3 ML Pen SUBCUT SCH (20:12)
[2017-02-17] MEDS: Insulin Aspart 100 Units/ML 3 ML Pen SUBCUT SCH ×7 (07:33→20:09)
[2017-02-17] MEDS: Metoprolol Succinate 100 MG Tab.ER PO SCH ×2 (07:33→19:03)
[2017-02-17] MEDS: BRINZOLAMIDE 1% EYEBOTH SCH ×2 (07:33→19:03)
[2017-02-17] MEDS: Aspirin 325 MG Tab.EC PO SCH (07:33)
[2017-02-17] MEDS: Furosemide 40 MG Tab PO SCH (07:34)
[2017-02-17] MEDS: Digoxin 125 MCG Tab PO SCH (07:34)
[2017-02-17] MEDS: Losartan 25 MG Tab PO SCH (07:34)
[2017-02-17] MEDS: Albuterol 0.083% 2.5 MG/3 ML Neb Soln NEB SCH ×3 (09:19→20:11)
[2017-02-17] MEDS: Warfarin 5 MG Tab PO SCH (12:02)
[2017-02-17] MEDS: Latanoprost 0.005% Ophth Soln 2.5 ML Bottle EYEBOTH SCH (19:02)
[2017-02-17] MEDS: Tamsulosin 0.4 MG Cap.ER PO SCH (19:03)
[2017-02-17] MEDS: Simvastatin 40 MG Tab PO SCH (19:03)
[2017-02-17] MEDS: Insulin Detemir 100 Units/ML 3 ML Pen SUBCUT SCH (20:08)
[2017-02-18] MEDS: Digoxin 125 MCG Tab PO SCH (07:55)
[2017-02-18] MEDS: Aspirin 325 MG Tab.EC PO SCH (07:55)
[2017-02-18] MEDS: BRINZOLAMIDE 1% EYEBOTH SCH ×2 (07:55→19:56)
[2017-02-18] MEDS: Furosemide 40 MG Tab PO SCH (07:55)
[2017-02-18] MEDS: Metoprolol Succinate 100 MG Tab.ER PO SCH ×2 (07:55→19:57)
[2017-02-18] MEDS: Losartan 25 MG Tab PO SCH (07:55)
[2017-02-18] MEDS: Insulin Aspart 100 Units/ML 3 ML Pen SUBCUT SCH ×7 (08:05→20:52)
[2017-02-18] MEDS: Albuterol 0.083% 2.5 MG/3 ML Neb Soln NEB SCH ×3 (08:07→20:00)
[2017-02-18] MEDS: Warfarin 5 MG Tab PO SCH (12:30)
[2017-02-18] MEDS: Simvastatin 40 MG Tab PO SCH (19:58)
[2017-02-18] MEDS: Tamsulosin 0.4 MG Cap.ER PO SCH (19:58)
[2017-02-18] MEDS: Latanoprost 0.005% Ophth Soln 2.5 ML Bottle EYEBOTH SCH (20:00)
[2017-02-18] MEDS: Insulin Detemir 100 Units/ML 3 ML Pen SUBCUT SCH (21:31)
[2017-02-19] MEDS: Losartan 25 MG Tab PO SCH (07:44)
[2017-02-19] MEDS: Digoxin 125 MCG Tab PO SCH (07:44)
[2017-02-19] MEDS: Furosemide 40 MG Tab PO SCH (07:44)
[2017-02-19] MEDS: Aspirin 325 MG Tab.EC PO SCH (07:45)
[2017-02-19] MEDS: Metoprolol Succinate 100 MG Tab.ER PO SCH (07:45)
[2017-02-19] MEDS: BRINZOLAMIDE 1% EYEBOTH SCH (07:45)
[2017-02-19] MEDS: Insulin Aspart 100 Units/ML 3 ML Pen SUBCUT SCH ×4 (07:46→12:01)
[2017-02-19 07:47] VITALS: BP 117/64
[2017-02-19] MEDS: Albuterol 0.083% 2.5 MG/3 ML Neb Soln NEB SCH (08:58)
--- NOTE | 2017-02-19 09:32 | DISCH ---
HOSPITAL COURSE: This is an 81-year-old gentleman who came in with a thromboembolic stroke. 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 Continued on anticoagulation and physical therapy. After acute stay, we put him in swing bed. LABORATORY DATA: Blood sugars ran actually pretty good. INRs were low when he came in. We eventually got him up to where he was therapeutic. At the time of discharge, he was actually moving around pretty good with a walker. DISPOSITION: The patient is now discharged home. We will see him back in the clinic on 02/25/2017, for an INR. We will try and get PT outpatient. DISCHARGE MEDICATIONS: Hospital medications, except for Zofran. DISCHARGE DIAGNOSIS: 1. THROMBOEMBOLIC CEREBROVASCULAR ACCIDENT. 2. ATRIAL FIBRILLATION. 3. CARDIOMYOPATHY. 4. DIABETES MELLITUS. 5. HYPERTENSION. 6. HYPERLIPIDEMIA. REGINALD/RYLEE /[id number]
--- NOTE | 2017-02-19 09:32 | DISCH ---
ADDENDUM: The patient will be going home on home health due to the fact he is homebound secondary to multiple thromboembolic CVAs. He needs close monitoring, he needs in-home physical therapy. REGINALD/RYLEE /[id number]
[2017-02-19] MEDS: Warfarin 5 MG Tab PO SCH (12:00)
== END 2017-02-19 12:47 | disposition home or self-care (01) | DRG 65 ==
LOC: CC.MS 14:55
PROVIDERS: ADMIT General Practice; ATTEND General Practice
DX: I63.9 Cerebral infarction, unspecified (principal); I50.22 Chronic systolic (congestive) heart failure; I42.9 Cardiomyopathy, unspecified; I48.91 Unspecified atrial fibrillation; E11.9 Type 2 diabetes mellitus without complications; E78.5 Hyperlipidemia, unspecified; I11.0 Hypertensive heart disease with heart failure
CPT/HCPCS: 36415; 81001; 82962; 85610; 94640; 94640-76; 97110-GP; 97530-GP; A9270-GY; J1815-GY; J7620-GY

== ENCOUNTER 2019-03-02 13:53 | Inpatient (IN) | payer MEDICARE, BC ==
--- NOTE | 2019-03-02 15:22 | EDM.PDOC ---
ED HPI GENERAL MEDICAL PROBLEM - General Chief Complaint: General Stated Complaint: weakness, headache, backache Time Seen by Provider: 03/02/19 14:14 Source of Information: Reports: Patient, Family History Limitations: Reports: No Limitations - History of Present Illness INITIAL COMMENTS - FREE TEXT/NARRATIVE: Juan Daniel is an 83 year old male who presents to the ED with c/o generalized weakness , headache, and back ache. He reports since about Saturday he has not felt well. Reports he has been getting more and more weak. Reports generalized malaise. Has had productive cough and worsening shortness of breath. Reports he hasn't been able to eat or drink much since Saturday. reports he has done nothing but lay around the last few days. 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 Denies any chest pain, abdominal pain, N/V/D, fever , chills, extremity swelling, urinary symptoms. Family reports he has been declining the last few months. Onset Date: 02/27/19 Duration: Getting Worse Location: Reports: Generalized Quality: Reports: Ache Associated Symptoms: Reports: Cough, Loss of Appetite, Malaise, Shortness of Breath, Weakness. Denies: Confusion, Chest Pain, cough w sputum, Diaphoresis, Fever/Chills, Headaches, Nausea/Vomiting, Rash, Seizure, Syncope - Related Data Allergies Allergy/AdvReac Type Severity Reaction Status Date / Time acetaminophen [From NyQuil] Allergy Itching Verified 03/02/19 13:56 dextromethorphan HBr Allergy Itching Verified 03/02/19 13:56 [From NyQuil] doxylamine succinate Allergy Itching Verified 03/02/19 13:56 [From NyQuil] lisinopril Allergy Itching Verified 03/02/19 13:56 pseudoephedrine HCl Allergy Itching Verified 03/02/19 13:56 [From NyQuil] tape Allergy Cannot Uncoded 03/02/19 13:56 Remember Home Meds: Home Meds Brinzolamide [Azopt 1% Ophth Susp] 1 drop EYEBOTH BID 07/21/14 [History] Travoprost [Travatan Z 0.004% Ophth Soln] 1 drop EYEBOTH DAILY 07/21/14 [History ] Aspirin [Ecotrin] 325 mg PO DAILY 05/09/16 [History] Digoxin 125 mcg PO DAILY 05/09/16 [History] Losartan [Cozaar] 50 mg PO DAILY 05/09/16 [History] Magnesium 500 mg PO DAILY 05/09/16 [History] Metoprolol Succinate 100 mg PO BID 05/09/16 [History] Nitroglycerin [Nitrostat] 0.4 mg SL ASDIRECTED 05/09/16 [History] Warfarin [Coumadin] 5 mg PO DAILY 05/09/16 [History] Furosemide 40 mg PO BID 02/03/17 [History] Albuterol/Ipratropium [DuoNeb 3.0-0.5 MG/3 ML] 3 ml NEB Q4H PRN #0 neb 02/19/17 [Rx] Insulin Detemir [Levemir] 20 unit SUBCUT BEDTIME pen 02/19/17 [Rx] Tamsulosin [Flomax] 0.4 mg PO BEDTIME cap.er 02/19/17 [Rx] Cholecalciferol (Vitamin D3) [Vitamin D3] 1 tab PO DAILY 03/02/19 [History] Finasteride 1 tab PO BEDTIME 03/02/19 [History] Flaxseed/Omega3,6,9/Fatty Acid [Flax Seed Oil 1,300 mg Softgel] 1,000 mg PO DAILY 03/02/19 [History] Insulin Aspart [NovoLOG] 10 units SQ BID 03/03/19 [History] Past Medical History HEENT History: Reports: Glaucoma Cardiovascular History: Reports: Afib, Bypass, Heart Failure, Heart Valve Replacement, High Cholesterol, Hypertension, MD, Stents Gastrointestinal History: Reports: GERD Genitourinary History: Reports: Retention, Urinary Musculoskeletal History: Reports: Arthritis, Fracture Neurological History: Reports: CVA, Neuropathy, Diabetic, Vertigo Endocrine/Metabolic History: Reports: Diabetes, Type II Hematologic History: Reports: Blood Transfusion(s) Dermatologic History: Reports: Benign Melanoma, Other (See Below) Other Dermatologic History: frequent rashes - Past Surgical History Cardiovascular Surgical History: Reports: Coronary Artery Bypass, Coronary Artery Stent, Valve Replacement Musculoskeletal Surgical History: Reports: Hip Replacement Social & Family History - Family History Family Medical History: Noncontributory - Tobacco Use Smoking Status *Q: Former Smoker Used Tobacco, but Quit: Yes Month/Year Tobacco Last Used: unknown - Caffeine Use Caffeine Use: Reports: None - Recreational Drug Use Recreational Drug Use: No ED ROS GENERAL - Review of Systems Review Of Systems: See Below Constitutional: Reports: Malaise, Weakness, Fatigue, Decreased Appetite. Denies : Fever, Chills HEENT: Reports: No Symptoms Respiratory: Reports: Shortness of Breath, Cough. Denies: Pleuritic Chest Pain , Sputum, Hemoptysis Cardiovascular: Reports: Dyspnea on Exertion, Orthopnea. Denies: Chest Pain, Edema, Lightheadedness, Palpitations, Syncope Endocrine: Reports: Fatigue GI/Abdominal: Reports: Decreased Appetite. Denies: Abdominal Pain, Constipation , Diarrhea, Hematochezia, Melena, Nausea, Vomiting : Reports: No Symptoms. Denies: Dysuria, Frequency, Urgency Musculoskeletal: Reports: Back Pain Skin: Reports: No Symptoms Neurological: Reports: Difficulty Walking, Weakness. Denies: Confusion, Dizziness, Headache, Numbness, Tingling Psychiatric: Reports: No Symptoms Hematologic/Lymphatic: Reports: No Symptoms Immunologic: Reports: No Symptoms ED EXAM, GENERAL - Physical Exam Exam: See Below Exam Limited By: No Limitations General Appearance: Alert, WD/WN, No Apparent Distress Eye Exam: Bilateral Eye: EOMI, Normal Fundi, Normal Inspection, PERRL Ears: Normal External Exam, Normal Canal, Hearing Grossly Normal, Normal TMs Nose: Normal Inspection, Normal Mucosa, No Blood Throat/Mouth: Other (Dry mucous membranes) Head: Atraumatic, Normocephalic Neck: Normal Inspection, Supple, Non-Tender, Full Range of Motion Respiratory/Chest: No Respiratory Distress, No Accessory Muscle Use, Chest Non- Tender, Decreased Breath Sounds (bases), Crackles (bases) Cardiovascular: Normal Peripheral Pulses, No Edema, Irregularly Irregular GI/Abdominal: Normal Bowel Sounds, Soft, Non-Tender, No Organomegaly, No Distention, No Abnormal Bruit, No Mass Extremities: Normal Inspection, Normal Range of Motion, Non-Tender, Normal Capillary Refill, No Pedal Edema Neurological: Alert, Oriented, CN II-XII Intact, Normal Cognition, Normal Reflexes, No Motor/Sensory Deficits, Other (unsteady gait, weak) Psychiatric: Normal Affect, Normal Mood Skin Exam: Warm, Dry, Intact, Normal Color, No Rash Lymphatic: No Adenopathy Course - Vital Signs Last Recorded V/S: Last Vital Signs Temp 97.8 F 03/03/19 07:39 Pulse 52 L 03/03/19 07:39 Resp 20 03/03/19 07:39 BP 109/40 L 03/03/19 07:46 Pulse Ox 96 03/03/19 07:39 - Orders/Labs/Meds Orders: Active Orders 24 hr Category Date Time Status Chest 2V [CR] Stat Exams 03/02/19 14:03 Taken Medication Orders Albuterol/Ipratropium (Duoneb 3.0-0.5 Mg/3 Ml) 3 ml NEB Q4H PRN PRN Reason: Cough Last Admin: 03/03/19 07:18 Dose: 3 ml Admin: 03/02/19 19:56 Dose: 3 ml Albuterol/Ipratropium (Duoneb 3.0-0.5 Mg/3 Ml) 3 ml NEB BID [facility] Aspirin (Ecotrin) 325 mg PO DAILY [facility] Last Admin: 03/03/19 07:18 Dose: 325 mg Digoxin (Lanoxin) 125 mcg PO DAILY [facility] Last Admin: 03/03/19 07:46 Dose: Docusate Sodium (Colace) 100 mg PO BID PRN PRN Reason: Constipation Finasteride (Proscar) 5 mg PO BEDTIME [facility] Last Admin: 03/02/19 19:46 Dose: 5 mg Furosemide (Lasix) 40 mg IVPUSH BIDDIURETIC [facility]ILA Last Admin: 03/03/19 07:17 Dose: 40 mg Admin: 03/02/19 16:44 Dose: 40 mg Ibuprofen (Motrin) 400 mg PO Q6H PRN PRN Reason: Pain (mild 1-3) Insulin Glargine (Lantus Solostar) 20 units SUBCUT BEDTIME [facility] Last Admin: 03/02/19 20:10 Dose: 20 units Insulin Human Lispro (Humalog) 0 unit SUBCUT 0800,1200,1730,2000 [facility]; Protocol Last Admin: 03/03/19 07:19 Dose: Not Given Admin: 03/02/19 20:12 Dose: Not Given Admin: 03/02/19 17:25 Dose: Not Given Insulin Human Lispro (Humalog) 10 unit SUBCUT BID [facility] Latanoprost (Xalatan 0.005% Ophth Soln) 0 ml EYEBOTH DAILY [facility] Last Admin: 03/03/19 07:20 Dose: 1 drop Losartan Potassium (Cozaar) 50 mg PO DAILY [facility] Last Admin: 03/03/19 07:45 Dose: Magnesium Chloride (Mag-64) 64 mg PO DAILY [facility] Last Admin: 03/03/19 07:18 Dose: 64 mg Metoprolol Succinate (Toprol Xl) 100 mg PO BID [facility] Last Admin: 03/03/19 07:46 Dose: Admin: 03/02/19 19:48 Dose: 100 mg Nitroglycerin (Nitrostat) 0.4 mg SL ASDIRECTED PRN PRN Reason: Chest Pain Ptom Brinzolamide [Azopt 1% Ophth Susp] 1 drop EYEBOTH BID [facility] Polyethylene Glycol (Miralax) 17 gm PO DAILY PRN PRN Reason: Constipation Sodium Chloride (Saline Flush) 10 ml FLUSH ASDIRECTED PRN PRN Reason: Keep Vein Open Tamsulosin HCl (Flomax) 0.4 mg PO BEDTIME [facility] Last Admin: 03/02/19 19:46 Dose: 0.4 mg Labs: Laboratory Tests 03/02/19 03/02/19 03/02/19 Range/Units 14:03 14:04 14:22 WBC 10.0 (5.0-10.0) 10^3/uL RBC 4.25 L (4.50-6.00) 10^6/uL Hgb 12.3 L (14.0-18.0) g/dL Hct 37.9 L (40.0-54.0) % MCV 89.2 (82.0-94.0) fL MCH 28.9 (27.0-32.0) pg MCHC 32.5 L (33.0-38.0) g/dL RDW Coeff of Shi 11.9 (11.0-15.0) % Plt Count 210 (150-400) 10^3/uL Neut % (Auto) 81.3 (35-85) % Lymph % (Auto) 5.3 L (10-55) % [place] % (Auto) 12.6 (0-16) % Eos % (Auto) 0.5 (0-5) % Baso % (Auto) 0.3 (0-3) % Neut # (Auto) 8.11 H (1.80-7.00) 10^3/uL Lymph # (Auto) 0.53 L (1.00-4.80) 10^3/uL [place] # (Auto) 1.26 H (0.00-0.80) 10^3/uL Eos # (Auto) 0.05 (0.00-0.45) 10^3/uL Baso # (Auto) 0.03 10^3/uL PT (9.7-12.3) SEC INR (0.92-1.18) Sodium 132 L (136-145) mEq/L Potassium 4.8 (3.5-5.0) mEq/L Chloride 95 L (98-106) mEq/L Carbon Dioxide 30 (21-32) mmol/L BUN 35 H (7-18) mg/dL Creatinine 1.6 H (0.7-1.3) mg/dL Est Cr Clr Drug Dosing 32.13 mL/min Estimated GFR (MDRD) 41 L (>=60) mL/min Glucose 174 H (75-99) mg/dL Calcium 9.4 (8.4-10.1) mg/dL Total Bilirubin 0.5 (0.0-1.0) mg/dL AST 15 (15-37) U/L ALT 12 (12-78) U/L Alkaline Phosphatase 58 (46-116) U/L Troponin I 0.031 (0.00-0.06) ng/mL C-Reactive Protein 8.3 H (0.2-0.8) mg/dL NT-Pro-B Natriuret Pep 3414 H (0-1000) pg/mL Total Protein 7.4 (6.4-8.2) g/dL Albumin 2.7 L (3.4-5.0) g/dL Urine Color Yellow (YELLOW) Urine Appearance Clear (CLEAR) Urine pH 6.0 (4.5-8.0) Ur Specific [place] 1.015 (1.003-1.020) Urine Protein Negative (NEGATIVE) mg/dL Urine Glucose (UA) Negative (NEGATIVE) mg/dL Urine Ketones Negative (NEGATIVE) mg/dL Urine Occult Blood Negative (NEGATIVE) Urine Nitrite Negative (NEGATIVE) Urine Bilirubin Negative (NEGATIVE) Urine Urobilinogen 0.2 (0.2-1.0) EU/dL Ur Leukocyte Esterase Negative (NEGATIVE) 06/24/19 Range/Units 14:22 WBC (5.0-10.0) 10^3/uL RBC (4.50-6.00) 10^6/uL Hgb (14.0-18.0) g/dL Hct (40.0-54.0) % MCV (82.0-94.0) fL MCH (27.0-32.0) pg MCHC (33.0-38.0) g/dL RDW Coeff of Shi (11.0-15.0) % Plt Count (150-400) 10^3/uL Neut % (Auto) (35-85) % Lymph % (Auto) (10-55) % [place] % (Auto) (0-16) % Eos % (Auto) (0-5) % Baso % (Auto) (0-3) % Neut # (Auto) (1.80-7.00) 10^3/uL Lymph # (Auto) (1.00-4.80) 10^3/uL [place] # (Auto) (0.00-0.80) 10^3/uL Eos # (Auto) (0.00-0.45) 10^3/uL Baso # (Auto) 10^3/uL PT 46.2 H (9.7-12.3) SEC INR 4.91 H* (0.92-1.18) Sodium (136-145) mEq/L Potassium (3.5-5.0) mEq/L Chloride (98-106) mEq/L Carbon Dioxide (21-32) mmol/L BUN (7-18) mg/dL Creatinine (0.7-1.3) mg/dL Est Cr Clr Drug Dosing mL/min Estimated GFR (MDRD) (>=60) mL/min Glucose (75-99) mg/dL Calcium (8.4-10.1) mg/dL Total Bilirubin (0.0-1.0) mg/dL AST (15-37) U/L ALT (12-78) U/L Alkaline Phosphatase (46-116) U/L Troponin I (0.00-0.06) ng/mL C-Reactive Protein (0.2-0.8) mg/dL NT-Pro-B Natriuret Pep (0-1000) pg/mL Total Protein (6.4-8.2) g/dL Albumin (3.4-5.0) g/dL Urine Color (YELLOW) Urine Appearance (CLEAR) Urine pH (4.5-8.0) Ur Specific [place] (1.003-1.020) Urine Protein (NEGATIVE) mg/dL Urine Glucose (UA) (NEGATIVE) mg/dL Urine Ketones (NEGATIVE) mg/dL Urine Occult Blood (NEGATIVE) Urine Nitrite (NEGATIVE) Urine Bilirubin (NEGATIVE) Urine Urobilinogen (0.2-1.0) EU/dL Ur Leukocyte Esterase (NEGATIVE) Meds: Medications Generic Name Dose Route Start Last Admin Trade Name Freq PRN Reason Stop Dose Admin Albuterol/Ipratropium 3 ml 03/02/19 15:41 03/03/19 07:18 Duoneb 3.0-0.5 Mg/3 Ml NEB 3 ml Q4H PRN Administration Cough Albuterol/Ipratropium 3 ml 03/03/19 20:00 Duoneb 3.0-0.5 Mg/3 Ml NEB BID [facility]IL[facility] Aspirin 325 mg 03/03/19 08:00 03/03/19 07:18 Ecotrin PO 325 mg DAILY [facility] Administration Digoxin 125 mcg 03/03/19 08:00 03/03/19 07:46 Lanoxin PO Not Given DAILY [facility] Docusate Sodium 100 mg 03/02/19 15:41 Colace PO BID PRN Constipation Finasteride 5 mg 03/02/19 20:00 03/02/19 19:46 Proscar PO 5 mg BEDTIME [facility]ILA Administration Furosemide 40 mg 03/02/19 16:00 03/03/19 07:17 Lasix IVPUSH 40 mg BIDDIURETIC GILA Administration Ibuprofen 400 mg 03/02/19 16:03 Motrin PO Q6H PRN Pain (mild 1-3) Insulin Glargine 20 units 03/02/19 20:00 03/02/19 20:10 Lantus Solostar SUBCUT 20 units BEDTIME [facility] Administration Insulin Human Lispro 0 unit 03/02/19 17:30 03/03/19 07:19 Humalog SUBCUT Not Given 0800,1200,1730,2000 [facility] Protocol Insulin Human Lispro 10 unit 03/03/19 20:00 Humalog SUBCUT BID [facility] Latanoprost 0 ml 03/03/19 08:00 03/03/19 07:20 Xalatan 0.005% Ophth Soln EYEBOTH 1 drop DAILY [facility] Administration Losartan Potassium 50 mg 03/03/19 08:00 03/03/19 07:45 Cozaar PO Not Given DAILY [facility] Magnesium Chloride 64 mg 03/03/19 08:00 03/03/19 07:18 Mag-64 PO 64 mg DAILY [facility] Administration Metoprolol Succinate 100 mg 03/02/19 20:00 03/03/19 07:46 Toprol Xl PO Not Given BID [facility] Nitroglycerin 0.4 mg 03/02/19 15:41 Nitrostat SL ASDIRECTED PRN Chest Pain Ptom 1 drop 03/03/19 12:00 Brinzolamide [Azopt EYEBOTH 1% Ophth Susp] BID [facility] Polyethylene Glycol 17 gm 03/02/19 15:41 Miralax PO DAILY PRN Constipation Sodium Chloride 10 ml 03/02/19 15:41 Saline Flush FLUSH ASDIRECTED PRN Keep Vein Open Tamsulosin HCl 0.4 mg 03/02/19 20:00 03/02/19 19:46 Flomax PO 0.4 mg BEDTIME [facility] Administration Discontinued Medications Generic Name Dose Route Start Last Admin Trade Name Freq PRN Reason Stop Dose Admin Acetaminophen 650 mg 03/02/19 15:41 Tylenol PO Q4H PRN Pain (Mild 1-3)/fever Insulin Human Lispro 10 unit 03/02/19 17:30 03/03/19 08:35 Humalog SUBCUT 10 unit TIDMEALS GILA Administration Insulin Human Lispro 0 unit 03/02/19 16:00 03/02/19 16:42 Humalog SUBCUT Not Given QID [facility] Protocol Departure - Departure Time of Disposition: 15:39 Disposition: Admitted As Inpatient 65 Condition: Fair Clinical Impression: Congestive heart failure (CHF) Qualifiers: Heart failure type: systolic Heart failure chronicity: acute on chronic Qualified Code(s): I50.23 - Acute on chronic systolic (congestive) heart failure Diabetes mellitus Qualifiers: Diabetes mellitus type: type 2 Diabetes mellitus medical terminologist insulin use: with care home use Diabetes mellitus complication status: with circulatory complication Diabetes mellitus complication detail: with other circulatory complications Qualified Code(s): E11.59 - Type 2 diabetes mellitus with other circulatory complications; Z79.4 - detention (current) use of insulin - Discharge Information *PRESCRIPTION DRUG MONITORING PROGRAM REVIEWED*: Not Applicable *COPY OF PRESCRIPTION DRUG MONITORING REPORT IN PATIENT [place]: Not Applicable - Problem List & Annotations (1) CHF (congestive heart failure) SNOMED Code(s): 76641597 Code(s): I50.9 - HEART FAILURE, UNSPECIFIED Status: Chronic Current Visit : Yes Annotation/Comment:: Acute on Chronic Stage 3 systolic heart failure, last known ejection fracture less than 20% Qualifiers: Heart failure type: systolic Heart failure chronicity: acute on chronic Qualified Code(s): I50.23 - Acute on chronic systolic (congestive) heart failure (2) Diabetes mellitus SNOMED Code(s): 17998649 Code(s): E11.9 - TYPE 2 DIABETES MELLITUS WITHOUT COMPLICATIONS Status: Acute Priority: Medium Current Visit: Yes Qualifiers: Diabetes mellitus type: type 2 Diabetes mellitus medical terminologist insulin use: with medical terminologist use Diabetes mellitus complication status: with circulatory complication Diabetes mellitus complication detail: with other circulatory complications Qualified Code(s): E11.59 - Type 2 diabetes mellitus with other circulatory complications; Z79.4 - detention (current) use of insulin (3) A-fib SNOMED Code(s): 10346974 Code(s): I48.91 - UNSPECIFIED ATRIAL FIBRILLATION Status: Chronic Current Visit: Yes Qualifiers: Atrial fibrillation type: paroxysmal Qualified Code(s): I48.0 - Paroxysmal atrial fibrillation (4) Cardiomyopathy SNOMED Code(s): 71401987 Code(s): I42.9 - CARDIOMYOPATHY, UNSPECIFIED Status: Chronic Current Visit: Yes Qualifiers: Cardiomyopathy type: unspecified Qualified Code(s): I42.9 - Cardiomyopathy , unspecified (5) Hypertension SNOMED Code(s): 73959413 Code(s): I10 - ESSENTIAL (PRIMARY) HYPERTENSION Status: Acute Current Visit: Yes (6) History of CVA (cerebrovascular accident) SNOMED Code(s): 607495969 Code(s): Z86.73 - PRSNL HX OF TIA (TIA), AND CEREB INFRC W/O RESID DEFICITS Status: Acute Current Visit: Yes (7) Palliative care patient SNOMED Code(s): 034643555 Code(s): Z51.5 - ENCOUNTER FOR PALLIATIVE CARE Status: Chronic Current Visit: Yes - Problem List Review Problem List Initiated/Reviewed/Updated: Yes - My Orders Last 24 Hours: My Active Orders 03/02/19 14:03 Chest 2V [CR] Stat - Assessment/Plan Admission H&P: Please use this note as an admission H&P Last 24 Hours: My Active Orders 03/02/19 14:03 Chest 2V [CR] Stat Plan: Chest Xray shows progression of perihilar interstitial and alveolar opacities most compatible with edema as well as cardiomegaly. No infiltrates. ProBNP elevated to 3414 Creatinine stable at baseline 1.6. Will start IV lasix 40 mg BID CRP elevated to 8.3. Labs otherwise stable. Daily weights Monitor I & O EKG shows atrial fibrillation. Patient anticoagulated with Coumadin. INR supratherapeutic. Hold Coumadin. Accu Checks QID. Home insulin plus SSI. Daily labs Admit acute with telemetry to Dr. Salinas. Reviewed CXR and labs with Dr Salinas, who is agreeable with admission.
[2019-03-02] MEDS ORDERED: Acetaminophen 325 MG Tab PO PRN (15:41)
[2019-03-02] MEDS ORDERED: Polyethylene Glycol 3350 Powder 17 GM Packet PO PRN (15:41)
[2019-03-02] MEDS ORDERED: Sodium Chloride 0.9% 10 ML Syringe FLUSH PRN (15:41)
[2019-03-02] MEDS ORDERED: Docusate Sodium 100 MG Cap PO PRN (15:41)
[2019-03-02] MEDS ORDERED: Nitroglycerin 0.4 MG Tab.SL SL PRN (15:41)
[2019-03-02] MEDS ORDERED: Insulin Lispro 100 Units/ML 3 ML Vial SUBCUT SCH (16:00)
[2019-03-02] MEDS ORDERED: Ibuprofen 200 MG Tab PO PRN (16:03)
[2019-03-02] MEDS: Furosemide 40 MG/4 ML VIAL IVPUSH SCH (16:44)
[2019-03-02] MEDS: Insulin Lispro 100 Units/ML 3 ML Vial SUBCUT SCH ×3 (17:25→20:12)
[2019-03-02] MEDS: Tamsulosin 0.4 MG Cap.ER PO SCH (19:46)
[2019-03-02] MEDS: Finasteride 5 MG Tab PO SCH (19:46)
[2019-03-02] MEDS: Metoprolol Succinate 100 MG Tab.ER PO SCH (19:48)
[2019-03-02] MEDS: Albuterol/Ipratropium 3.0-0.5 MG/3 ML Neb Soln NEB PRN (19:56)
[2019-03-02] MEDS: Insulin Glargine,Human Rec. Analog 100 Units/ML 3 ML Pen SUBCUT SCH (20:10)
[2019-03-03] MEDS: Furosemide 40 MG/4 ML VIAL IVPUSH SCH ×2 (07:17→16:38)
[2019-03-03] MEDS: Albuterol/Ipratropium 3.0-0.5 MG/3 ML Neb Soln NEB PRN (07:18)
[2019-03-03] MEDS: Aspirin 325 MG Tab.EC PO SCH (07:18)
[2019-03-03] MEDS: Magnesium Chloride 64 MG Tab.ER PO SCH (07:18)
[2019-03-03] MEDS: Insulin Lispro 100 Units/ML 3 ML Vial SUBCUT SCH ×6 (07:19→20:24)
[2019-03-03] MEDS: Latanoprost 0.005% Ophth Soln 2.5 ML Bottle EYEBOTH SCH (07:20)
[2019-03-03] MEDS: Losartan 25 MG Tab PO SCH (07:45)
[2019-03-03] MEDS: Metoprolol Succinate 100 MG Tab.ER PO SCH ×2 (07:46→20:12)
[2019-03-03] MEDS: Digoxin 125 MCG Tab PO SCH ×2 (07:46→11:48)
--- NOTE | 2019-03-03 08:42 | PCM.PN ---
- General Info Date of Service: 03/03/19 Admission Dx/Problem (Free Text): Acute on Chronic CHF Functional Status: Reports: Tolerating Diet, Ambulating, Urinating. Denies: Pain Controlled (Is complaining of back and hip pain this am) - Review of Systems General: Reports: Weakness, Fatigue HEENT: Reports: No Symptoms Pulmonary: Reports: Shortness of Breath, Cough, Wheezing Cardiovascular: Denies: Chest Pain, Edema, Lightheadedness Gastrointestinal: Denies: Abdominal Pain, Nausea, Vomiting Genitourinary: Reports: No Symptoms Musculoskeletal: Reports: Back Pain, Joint Pain Skin: Reports: No Symptoms Neurological: Reports: No Symptoms - Patient Data Vitals - Most Recent: Last Vital Signs Temp 97.8 F 03/03/19 07:39 Pulse 52 L 03/03/19 07:39 Resp 20 03/03/19 07:39 BP 109/40 L 03/03/19 07:46 Pulse Ox 96 03/03/19 07:39 Weight - Most Recent: 175 lb I&O - Last 24 Hours: Intake & Output 03/02/19 03/03/19 03/03/19 22:59 06:59 14:59 Intake Total 300 300 Output Total 400 650 Balance -100 -350 Lab Results Last 24 Hours: Laboratory Results - last 24 hr 03/02/19 03/02/19 03/02/19 Range/Units 14:03 14:04 14:22 WBC 10.0 (5.0-10.0) 10^3/uL RBC 4.25 L (4.50-6.00) 10^6/uL Hgb 12.3 L (14.0-18.0) g/dL Hct 37.9 L (40.0-54.0) % MCV 89.2 (82.0-94.0) fL MCH 28.9 (27.0-32.0) pg MCHC 32.5 L (33.0-38.0) g/dL RDW Coeff of Shi 11.9 (11.0-15.0) % Plt Count 210 (150-400) 10^3/uL Neut % (Auto) 81.3 (35-85) % Lymph % (Auto) 5.3 L (10-55) % [place] % (Auto) 12.6 (0-16) % Eos % (Auto) 0.5 (0-5) % Baso % (Auto) 0.3 (0-3) % Neut # (Auto) 8.11 H (1.80-7.00) 10^3/uL Lymph # (Auto) 0.53 L (1.00-4.80) 10^3/uL [place] # (Auto) 1.26 H (0.00-0.80) 10^3/uL Eos # (Auto) 0.05 (0.00-0.45) 10^3/uL Baso # (Auto) 0.03 10^3/uL Add Manual Diff Neutrophils % (Manual) (35-85) % Lymphocytes % (Manual) (21-55) % Monocytes % (Manual) (2-12) % Eosinophils % (Manual) (0-5) % PT (9.7-12.3) SEC INR (0.92-1.18) Sodium 132 L (136-145) mEq/L Potassium 4.8 (3.5-5.0) mEq/L Chloride 95 L (98-106) mEq/L Carbon Dioxide 30 (21-32) mmol/L BUN 35 H (7-18) mg/dL Creatinine 1.6 H (0.7-1.3) mg/dL Est Cr Clr Drug Dosing 32.13 mL/min Estimated GFR (MDRD) 41 L (>=60) mL/min Glucose 174 H (75-99) mg/dL POC Glucose (75-105) mg/dl Calcium 9.4 (8.4-10.1) mg/dL Total Bilirubin 0.5 (0.0-1.0) mg/dL AST 15 (15-37) U/L ALT 12 (12-78) U/L Alkaline Phosphatase 58 (46-116) U/L Troponin I 0.031 (0.00-0.06) ng/mL C-Reactive Protein 8.3 H (0.2-0.8) mg/dL NT-Pro-B Natriuret Pep 3414 H (0-1000) pg/mL Total Protein 7.4 (6.4-8.2) g/dL Albumin 2.7 L (3.4-5.0) g/dL Urine Color Yellow (YELLOW) Urine Appearance Clear (CLEAR) Urine pH 6.0 (4.5-8.0) Ur Specific [place] 1.015 (1.003-1.020) Urine Protein Negative (NEGATIVE) mg/dL Urine Glucose (UA) Negative (NEGATIVE) mg/dL Urine Ketones Negative (NEGATIVE) mg/dL Urine Occult Blood Negative (NEGATIVE) Urine Nitrite Negative (NEGATIVE) Urine Bilirubin Negative (NEGATIVE) Urine Urobilinogen 0.2 (0.2-1.0) EU/dL Ur Leukocyte Esterase Negative (NEGATIVE) 03/02/19 03/02/19 03/02/19 Range/Units 14:22 17:23 20:02 WBC (5.0-10.0) 10^3/uL RBC (4.50-6.00) 10^6/uL Hgb (14.0-18.0) g/dL Hct (40.0-54.0) % MCV (82.0-94.0) fL MCH (27.0-32.0) pg MCHC (33.0-38.0) g/dL RDW Coeff of Shi (11.0-15.0) % Plt Count (150-400) 10^3/uL Neut % (Auto) (35-85) % Lymph % (Auto) (10-55) % [place] % (Auto) (0-16) % Eos % (Auto) (0-5) % Baso % (Auto) (0-3) % Neut # (Auto) (1.80-7.00) 10^3/uL Lymph # (Auto) (1.00-4.80) 10^3/uL [place] # (Auto) (0.00-0.80) 10^3/uL Eos # (Auto) (0.00-0.45) 10^3/uL Baso # (Auto) 10^3/uL Add Manual Diff Neutrophils % (Manual) (35-85) % Lymphocytes % (Manual) (21-55) % Monocytes % (Manual) (2-12) % Eosinophils % (Manual) (0-5) % PT 46.2 H (9.7-12.3) SEC INR 4.91 H* (0.92-1.18) Sodium (136-145) mEq/L Potassium (3.5-5.0) mEq/L Chloride (98-106) mEq/L Carbon Dioxide (21-32) mmol/L BUN (7-18) mg/dL Creatinine (0.7-1.3) mg/dL Est Cr Clr Drug Dosing mL/min Estimated GFR (MDRD) (>=60) mL/min Glucose (75-99) mg/dL POC Glucose 129 H 140 H (75-105) mg/dl Calcium (8.4-10.1) mg/dL Total Bilirubin (0.0-1.0) mg/dL AST (15-37) U/L ALT (12-78) U/L Alkaline Phosphatase (46-116) U/L Troponin I (0.00-0.06) ng/mL C-Reactive Protein (0.2-0.8) mg/dL NT-Pro-B Natriuret Pep (0-1000) pg/mL Total Protein (6.4-8.2) g/dL Albumin (3.4-5.0) g/dL Urine Color (YELLOW) Urine Appearance (CLEAR) Urine pH (4.5-8.0) Ur Specific [place] (1.003-1.020) Urine Protein (NEGATIVE) mg/dL Urine Glucose (UA) (NEGATIVE) mg/dL Urine Ketones (NEGATIVE) mg/dL Urine Occult Blood (NEGATIVE) Urine Nitrite (NEGATIVE) Urine Bilirubin (NEGATIVE) Urine Urobilinogen (0.2-1.0) EU/dL Ur Leukocyte Esterase (NEGATIVE) 03/03/19 03/03/19 03/03/19 Range/Units 07:00 07:00 07:00 WBC 9.0 (5.0-10.0) 10^3/uL RBC 4.27 L (4.50-6.00) 10^6/uL Hgb 12.5 L (14.0-18.0) g/dL Hct 38.1 L (40.0-54.0) % MCV 89.2 (82.0-94.0) fL MCH 29.3 (27.0-32.0) pg MCHC 32.8 L (33.0-38.0) g/dL RDW Coeff of Shi 11.9 (11.0-15.0) % Plt Count 214 (150-400) 10^3/uL Neut % (Auto) (35-85) % Lymph % (Auto) (10-55) % [place] % (Auto) (0-16) % Eos % (Auto) (0-5) % Baso % (Auto) (0-3) % Neut # (Auto) (1.80-7.00) 10^3/uL Lymph # (Auto) (1.00-4.80) 10^3/uL [place] # (Auto) (0.00-0.80) 10^3/uL Eos # (Auto) (0.00-0.45) 10^3/uL Baso # (Auto) 10^3/uL Add Manual Diff Yes Neutrophils % (Manual) 76 (35-85) % Lymphocytes % (Manual) 7 L (21-55) % Monocytes % (Manual) 15 H (2-12) % Eosinophils % (Manual) 2 (0-5) % PT 43.6 H (9.7-12.3) SEC INR 4.62 H* (0.92-1.18) Sodium 133 L (136-145) mEq/L Potassium 4.9 (3.5-5.0) mEq/L Chloride 95 L (98-106) mEq/L Carbon Dioxide 34 H (21-32) mmol/L BUN 40 H (7-18) mg/dL Creatinine 1.8 H (0.7-1.3) mg/dL Est Cr Clr Drug Dosing 28.56 mL/min Estimated GFR (MDRD) 36 L (>=60) mL/min Glucose 97 D (75-99) mg/dL POC Glucose (75-105) mg/dl Calcium 9.6 (8.4-10.1) mg/dL Total Bilirubin (0.0-1.0) mg/dL AST (15-37) U/L ALT (12-78) U/L Alkaline Phosphatase (46-116) U/L Troponin I (0.00-0.06) ng/mL C-Reactive Protein 8.9 H (0.2-0.8) mg/dL NT-Pro-B Natriuret Pep (0-1000) pg/mL Total Protein (6.4-8.2) g/dL Albumin (3.4-5.0) g/dL Urine Color (YELLOW) Urine Appearance (CLEAR) Urine pH (4.5-8.0) Ur Specific [place] (1.003-1.020) Urine Protein (NEGATIVE) mg/dL Urine Glucose (UA) (NEGATIVE) mg/dL Urine Ketones (NEGATIVE) mg/dL Urine Occult Blood (NEGATIVE) Urine Nitrite (NEGATIVE) Urine Bilirubin (NEGATIVE) Urine Urobilinogen (0.2-1.0) EU/dL Ur Leukocyte Esterase (NEGATIVE) 03/03/19 Range/Units 07:16 WBC (5.0-10.0) 10^3/uL RBC (4.50-6.00) 10^6/uL Hgb (14.0-18.0) g/dL Hct (40.0-54.0) % MCV (82.0-94.0) fL MCH (27.0-32.0) pg MCHC (33.0-38.0) g/dL RDW Coeff of Shi (11.0-15.0) % Plt Count (150-400) 10^3/uL Neut % (Auto) (35-85) % Lymph % (Auto) (10-55) % [place] % (Auto) (0-16) % Eos % (Auto) (0-5) % Baso % (Auto) (0-3) % Neut # (Auto) (1.80-7.00) 10^3/uL Lymph # (Auto) (1.00-4.80) 10^3/uL [place] # (Auto) (0.00-0.80) 10^3/uL Eos # (Auto) (0.00-0.45) 10^3/uL Baso # (Auto) 10^3/uL Add Manual Diff Neutrophils % (Manual) (35-85) % Lymphocytes % (Manual) (21-55) % Monocytes % (Manual) (2-12) % Eosinophils % (Manual) (0-5) % PT (9.7-12.3) SEC INR (0.92-1.18) Sodium (136-145) mEq/L Potassium (3.5-5.0) mEq/L Chloride (98-106) mEq/L Carbon Dioxide (21-32) mmol/L BUN (7-18) mg/dL Creatinine (0.7-1.3) mg/dL Est Cr Clr Drug Dosing mL/min Estimated GFR (MDRD) (>=60) mL/min Glucose (75-99) mg/dL POC Glucose 88 (75-105) mg/dl Calcium (8.4-10.1) mg/dL Total Bilirubin (0.0-1.0) mg/dL AST (15-37) U/L ALT (12-78) U/L Alkaline Phosphatase (46-116) U/L Troponin I (0.00-0.06) ng/mL C-Reactive Protein (0.2-0.8) mg/dL NT-Pro-B Natriuret Pep (0-1000) pg/mL Total Protein (6.4-8.2) g/dL Albumin (3.4-5.0) g/dL Urine Color (YELLOW) Urine Appearance (CLEAR) Urine pH (4.5-8.0) Ur Specific [place] (1.003-1.020) Urine Protein (NEGATIVE) mg/dL Urine Glucose (UA) (NEGATIVE) mg/dL Urine Ketones (NEGATIVE) mg/dL Urine Occult Blood (NEGATIVE) Urine Nitrite (NEGATIVE) Urine Bilirubin (NEGATIVE) Urine Urobilinogen (0.2-1.0) EU/dL Ur Leukocyte Esterase (NEGATIVE) Med Orders - Current: Current Medications Albuterol/Ipratropium (Duoneb 3.0-0.5 Mg/3 Ml) 3 ml NEB Q4H PRN PRN Reason: Cough Last Admin: 03/03/19 07:18 Dose: 3 ml Albuterol/Ipratropium (Duoneb 3.0-0.5 Mg/3 Ml) 3 ml NEB BID [facility] Aspirin (Ecotrin) 325 mg PO DAILY [facility] Last Admin: 03/03/19 07:18 Dose: 325 mg Digoxin (Lanoxin) 125 mcg PO DAILY [facility] Last Admin: 03/03/19 07:46 Dose: Not Given Docusate Sodium (Colace) 100 mg PO BID PRN PRN Reason: Constipation Finasteride (Proscar) 5 mg PO BEDTIME [facility] Last Admin: 03/02/19 19:46 Dose: 5 mg Furosemide (Lasix) 40 mg IVPUSH BIDDIURETIC [facility] Last Admin: 03/03/19 07:17 Dose: 40 mg Ibuprofen (Motrin) 400 mg PO Q6H PRN PRN Reason: Pain (mild 1-3) Insulin Glargine (Lantus Solostar) 20 units SUBCUT BEDTIME [facility] Last Admin: 03/02/19 20:10 Dose: 20 units Insulin Human Lispro (Humalog) 10 unit SUBCUT TIDMEALS [facility] Last Admin: 03/02/19 17:40 Dose: 10 unit Insulin Human Lispro (Humalog) 0 unit SUBCUT 0800,1200,1730,2000 [facility]; Protocol Last Admin: 03/03/19 07:19 Dose: Not Given Latanoprost (Xalatan 0.005% Ophth Soln) 0 ml EYEBOTH DAILY [facility] Last Admin: 03/03/19 07:20 Dose: 1 drop Losartan Potassium (Cozaar) 50 mg PO DAILY [facility] Last Admin: 03/03/19 07:45 Dose: Not Given Magnesium Chloride (Mag-64) 64 mg PO DAILY [facility] Last Admin: 03/03/19 07:18 Dose: 64 mg Metoprolol Succinate (Toprol Xl) 100 mg PO BID [facility] Last Admin: 03/03/19 07:46 Dose: Not Given Nitroglycerin (Nitrostat) 0.4 mg SL ASDIRECTED PRN PRN Reason: Chest Pain Non-Formulary Medication (Brinzolamide [Azopt 1% Ophth Susp]) 1 drop EYEBOTH BID [facility] Polyethylene Glycol (Miralax) 17 gm PO DAILY PRN PRN Reason: Constipation Sodium Chloride (Saline Flush) 10 ml FLUSH ASDIRECTED PRN PRN Reason: Keep Vein Open Tamsulosin HCl (Flomax) 0.4 mg PO BEDTIME [facility] Last Admin: 03/02/19 19:46 Dose: 0.4 mg Discontinued Medications Acetaminophen (Tylenol) 650 mg PO Q4H PRN PRN Reason: Pain (Mild 1-3)/fever Insulin Human Lispro (Humalog) 0 unit SUBCUT QID [facility]; Protocol Last Admin: 03/02/19 16:42 Dose: Not Given - Exam Quality Assessment: Supplemental Oxygen General: Alert, Oriented HEENT: Mucous Membr. Moist/[place] Neck: Supple Lungs: Clear to Auscultation, Decreased Breath Sounds Cardiovascular: Irregular Rhythm GI/Abdominal Exam: Normal Bowel Sounds, Soft, Non-Tender Extremities: Normal Inspection, No Pedal Edema Skin: Warm, Dry Neurological: No New Focal Deficit - Problem List & Annotations (1) CHF (congestive heart failure) SNOMED Code(s): 61320440 Code(s): I50.9 - HEART FAILURE, UNSPECIFIED Status: Chronic Current Visit : No Qualifiers: Qualified Code(s): I50.23 - Acute on chronic systolic (congestive) heart failure Annotation/Comment:: Acute on Chronic Stage 3 systolic heart failure, last known ejection fracture less than 20% - Problem List Review Problem List Initiated/Reviewed/Updated: Yes - Assessment Assessment:: Acute on Chronic Stage 3 Congestive Heart Failure - Plan Plan:: Patient complains of back and hip pain this am, states hard to get comfortable. Does feel short of breath with any activity, no change from yesterday. Blood pressure has been running low since admit, nurse held am metoprolol and Losartan today. Telemetry continues atrial fib. INR high yet this am, 4.62. Creatinine is up to 1.8, has been on BID IV Lasix. No edema. Lung sounds noted rhonchi per nurse this am prior to treatment, improved now and clear but diminished. Will continue to monitor telemetry, blood pressure. Hold Coumadin. Have PT address back and hip pain. Continue with IV Lasix, repeat labs in am. Obtain echocardiogram
[2019-03-03] MEDS: BRINZOLAMIDE EYEBOTH SCH ×2 (11:48→20:06)
[2019-03-03] MEDS: Finasteride 5 MG Tab PO SCH (20:11)
[2019-03-03] MEDS: Albuterol/Ipratropium 3.0-0.5 MG/3 ML Neb Soln NEB SCH (20:14)
[2019-03-03] MEDS: Tamsulosin 0.4 MG Cap.ER PO SCH (20:14)
[2019-03-03] MEDS: Insulin Glargine,Human Rec. Analog 100 Units/ML 3 ML Pen SUBCUT SCH (20:26)
[2019-03-04] MEDS: Losartan 25 MG Tab PO SCH (07:51)
[2019-03-04] MEDS: Furosemide 40 MG/4 ML VIAL IVPUSH SCH ×2 (07:51→16:59)
[2019-03-04] MEDS: Aspirin 325 MG Tab.EC PO SCH (07:51)
[2019-03-04] MEDS: Albuterol/Ipratropium 3.0-0.5 MG/3 ML Neb Soln NEB SCH ×2 (07:52→21:12)
[2019-03-04] MEDS: BRINZOLAMIDE EYEBOTH SCH ×2 (07:52→19:18)
[2019-03-04] MEDS: Digoxin 125 MCG Tab PO SCH (07:52)
[2019-03-04] MEDS: Metoprolol Succinate 100 MG Tab.ER PO SCH (07:53)
[2019-03-04] MEDS: Magnesium Chloride 64 MG Tab.ER PO SCH (07:53)
[2019-03-04] MEDS: Insulin Lispro 100 Units/ML 3 ML Vial SUBCUT SCH ×6 (07:59→21:13)
[2019-03-04] MEDS: Latanoprost 0.005% Ophth Soln 2.5 ML Bottle EYEBOTH SCH (08:02)
[2019-03-04] MEDS: Finasteride 5 MG Tab PO SCH (19:19)
[2019-03-04] MEDS: Tamsulosin 0.4 MG Cap.ER PO SCH (19:20)
[2019-03-04] MEDS: Insulin Glargine,Human Rec. Analog 100 Units/ML 3 ML Pen SUBCUT SCH (21:14)
--- NOTE | 2019-03-04 22:20 | PCM.PN ---
- General Info Date of Service: 03/04/19 Admission Dx/Problem (Free Text): Acute on Chronic CHF Functional Status: Reports: Pain Controlled, Tolerating Diet, Ambulating - Review of Systems General: Reports: Weakness, Fatigue HEENT: Reports: No Symptoms Pulmonary: Reports: Shortness of Breath (admits that shortness of breath has improved since yesterday), Cough, Sputum Cardiovascular: Denies: Chest Pain, Edema, Lightheadedness Gastrointestinal: Denies: Abdominal Pain, Nausea, Vomiting Genitourinary: Reports: No Symptoms Musculoskeletal: Reports: No Symptoms Skin: Reports: No Symptoms Neurological: Reports: No Symptoms - Patient Data Vitals - Most Recent: Last Vital Signs Temp 99 F 03/04/19 16:58 Pulse 88 03/04/19 16:58 Resp 18 03/04/19 16:58 BP 98/45 L 03/04/19 16:58 Pulse Ox 92 L 03/04/19 16:58 Weight - Most Recent: 175 lb 1.6 oz I&O - Last 24 Hours: Intake & Output 03/04/19 03/04/19 03/04/19 06:59 14:59 22:59 Intake Total 200 Output Total 350 1300 Balance 200 -350 -1300 Lab Results Last 24 Hours: Laboratory Results - last 24 hr 03/04/19 03/04/19 03/04/19 Range/Units 06:50 06:50 06:50 WBC 8.3 (5.0-10.0) 10^3/uL RBC 4.24 L (4.50-6.00) 10^6/uL Hgb 12.2 L (14.0-18.0) g/dL Hct 37.5 L (40.0-54.0) % MCV 88.4 (82.0-94.0) fL MCH 28.8 (27.0-32.0) pg MCHC 32.5 L (33.0-38.0) g/dL RDW Coeff of Shi 11.8 (11.0-15.0) % Plt Count 211 (150-400) 10^3/uL Add Manual Diff Yes Neutrophils % (Manual) 68 (35-85) % Lymphocytes % (Manual) 11 L (21-55) % Monocytes % (Manual) 16 H (2-12) % Eosinophils % (Manual) 5 (0-5) % Absolute Neutrophils 5.64 (1.80-7.00) 10^3/uL Lymphocytes # (Manual) 0.91 L (1.00-4.80) 10^3/uL Monocytes # (Manual) 1.33 H (0.00-0.80) 10^3/uL Eosinophils # (Manual) 0.42 (0.00-0.45) 10^3/uL PT 32.7 H (9.7-12.3) SEC INR 3.40 H (0.92-1.18) Sodium 132 L (136-145) mEq/L Potassium 4.0 (3.5-5.0) mEq/L Chloride 95 L (98-106) mEq/L Carbon Dioxide 32 (21-32) mmol/L BUN 39 H (7-18) mg/dL Creatinine 1.6 H (0.7-1.3) mg/dL Est Cr Clr Drug Dosing 32.13 mL/min Estimated GFR (MDRD) 41 L (>=60) mL/min Glucose 106 H (75-99) mg/dL POC Glucose (75-105) mg/dl Calcium 9.2 (8.4-10.1) mg/dL C-Reactive Protein 7.9 H (0.2-0.8) mg/dL 03/04/19 03/04/19 03/04/19 Range/Units 07:56 11:32 16:57 WBC (5.0-10.0) 10^3/uL RBC (4.50-6.00) 10^6/uL Hgb (14.0-18.0) g/dL Hct (40.0-54.0) % MCV (82.0-94.0) fL MCH (27.0-32.0) pg MCHC (33.0-38.0) g/dL RDW Coeff of Shi (11.0-15.0) % Plt Count (150-400) 10^3/uL Add Manual Diff Neutrophils % (Manual) (35-85) % Lymphocytes % (Manual) (21-55) % Monocytes % (Manual) (2-12) % Eosinophils % (Manual) (0-5) % Absolute Neutrophils (1.80-7.00) 10^3/uL Lymphocytes # (Manual) (1.00-4.80) 10^3/uL Monocytes # (Manual) (0.00-0.80) 10^3/uL Eosinophils # (Manual) (0.00-0.45) 10^3/uL PT (9.7-12.3) SEC INR (0.92-1.18) Sodium (136-145) mEq/L Potassium (3.5-5.0) mEq/L Chloride (98-106) mEq/L Carbon Dioxide (21-32) mmol/L BUN (7-18) mg/dL Creatinine (0.7-1.3) mg/dL Est Cr Clr Drug Dosing mL/min Estimated GFR (MDRD) (>=60) mL/min Glucose (75-99) mg/dL POC Glucose 112 H 158 H 221 H (75-105) mg/dl Calcium (8.4-10.1) mg/dL C-Reactive Protein (0.2-0.8) mg/dL 03/04/19 Range/Units 21:09 WBC (5.0-10.0) 10^3/uL RBC (4.50-6.00) 10^6/uL Hgb (14.0-18.0) g/dL Hct (40.0-54.0) % MCV (82.0-94.0) fL MCH (27.0-32.0) pg MCHC (33.0-38.0) g/dL RDW Coeff of Shi (11.0-15.0) % Plt Count (150-400) 10^3/uL Add Manual Diff Neutrophils % (Manual) (35-85) % Lymphocytes % (Manual) (21-55) % Monocytes % (Manual) (2-12) % Eosinophils % (Manual) (0-5) % Absolute Neutrophils (1.80-7.00) 10^3/uL Lymphocytes # (Manual) (1.00-4.80) 10^3/uL Monocytes # (Manual) (0.00-0.80) 10^3/uL Eosinophils # (Manual) (0.00-0.45) 10^3/uL PT (9.7-12.3) SEC INR (0.92-1.18) Sodium (136-145) mEq/L Potassium (3.5-5.0) mEq/L Chloride (98-106) mEq/L Carbon Dioxide (21-32) mmol/L BUN (7-18) mg/dL Creatinine (0.7-1.3) mg/dL Est Cr Clr Drug Dosing mL/min Estimated GFR (MDRD) (>=60) mL/min Glucose (75-99) mg/dL POC Glucose 181 H (75-105) mg/dl Calcium (8.4-10.1) mg/dL C-Reactive Protein (0.2-0.8) mg/dL Med Orders - Current: Current Medications Albuterol/Ipratropium (Duoneb 3.0-0.5 Mg/3 Ml) 3 ml NEB Q4H PRN PRN Reason: Cough Last Admin: 03/03/19 07:18 Dose: 3 ml Albuterol/Ipratropium (Duoneb 3.0-0.5 Mg/3 Ml) 3 ml NEB BID [facility] Last Admin: 03/04/19 21:12 Dose: 3 ml Aspirin (Ecotrin) 325 mg PO DAILY [facility] Last Admin: 03/04/19 07:51 Dose: 325 mg Digoxin (Lanoxin) 125 mcg PO DAILY [facility] Last Admin: 03/04/19 07:52 Dose: 125 mcg Docusate Sodium (Colace) 100 mg PO BID PRN PRN Reason: Constipation Finasteride (Proscar) 5 mg PO BEDTIME [facility] Last Admin: 03/04/19 19:19 Dose: 5 mg Furosemide (Lasix) 40 mg IVPUSH BIDDIURETIC [facility] Last Admin: 03/04/19 16:59 Dose: 40 mg Ibuprofen (Motrin) 400 mg PO Q6H PRN PRN Reason: Pain (mild 1-3) Insulin Glargine (Lantus Solostar) 20 units SUBCUT BEDTIME [facility] Last Admin: 03/04/19 21:14 Dose: 20 units Insulin Human Lispro (Humalog) 0 unit SUBCUT 0800,1200,1730,2000 [facility]; Protocol Last Admin: 03/04/19 21:12 Dose: 2 units Insulin Human Lispro (Humalog) 10 unit SUBCUT BID [facility] Last Admin: 03/04/19 21:13 Dose: 10 units Latanoprost (Xalatan 0.005% Ophth Soln) 0 ml EYEBOTH DAILY [facility] Last Admin: 03/04/19 08:02 Dose: 1 drop Losartan Potassium (Cozaar) 50 mg PO DAILY [facility] Last Admin: 03/04/19 07:51 Dose: 50 mg Magnesium Chloride (Mag-64) 64 mg PO DAILY [facility] Last Admin: 03/04/19 07:53 Dose: 64 mg Metoprolol Tartrate (Lopressor) 12.5 mg PO BID [facility] Nitroglycerin (Nitrostat) 0.4 mg SL ASDIRECTED PRN PRN Reason: Chest Pain Ptom Brinzolamide [Azopt 1% Ophth Susp] 1 drop EYEBOTH BID [facility] Last Admin: 03/04/19 19:18 Dose: 1 drop Polyethylene Glycol (Miralax) 17 gm PO DAILY PRN PRN Reason: Constipation Last Admin: 03/04/19 21:27 Dose: 17 gm Sodium Chloride (Saline Flush) 10 ml FLUSH ASDIRECTED PRN PRN Reason: Keep Vein Open Tamsulosin HCl (Flomax) 0.4 mg PO BEDTIME [facility] Last Admin: 03/04/19 19:20 Dose: 0.4 mg Discontinued Medications Acetaminophen (Tylenol) 650 mg PO Q4H PRN PRN Reason: Pain (Mild 1-3)/fever Insulin Human Lispro (Humalog) 10 unit SUBCUT TIDMEALS [facility] Last Admin: 03/03/19 08:35 Dose: 10 unit Insulin Human Lispro (Humalog) 0 unit SUBCUT QID [facility]; Protocol Last Admin: 03/02/19 16:42 Dose: Not Given Metoprolol Succinate (Toprol Xl) 100 mg PO BID [facility] Last Admin: 03/04/19 07:53 Dose: 100 mg - Exam General: Alert, Oriented HEENT: Mucous Membr. Moist/[place] Neck: Supple Lungs: Decreased Breath Sounds Cardiovascular: Irregular Rhythm GI/Abdominal Exam: Normal Bowel Sounds, Soft, Non-Tender Extremities: Normal Inspection, No Pedal Edema Skin: Warm, Dry Neurological: No New Focal Deficit - Problem List & Annotations (1) CHF (congestive heart failure) SNOMED Code(s): 49141702 Code(s): I50.9 - HEART FAILURE, UNSPECIFIED Status: Chronic Current Visit : Yes Qualifiers: Heart failure type: systolic Heart failure chronicity: acute on chronic Qualified Code(s): I50.23 - Acute on chronic systolic (congestive) heart failure Annotation/Comment:: Acute on Chronic Stage 3 systolic heart failure, last known ejection fracture less than 20% - Problem List Review Problem List Initiated/Reviewed/Updated: Yes - My Orders Last 24 Hours: My Active Orders 03/05/19 05:11 Chest 2V [CR] AM MAGNESIUM [CHEM] Routine - Assessment Assessment:: Acute on Chronic Stage 3 Congestive Heart Failure - Plan Plan:: Patient complains of back and hip pain this am, states hard to get comfortable. Does feel short of breath with any activity, no change from yesterday. Blood pressure has been running low since admit, nurse held am metoprolol and Losartan today. Telemetry continues atrial fib. INR high yet this am, 4.62. Creatinine is up to 1.8, has been on BID IV Lasix. No edema. Lung sounds noted rhonchi per nurse this am prior to treatment, improved now and clear but diminished. Will continue to monitor telemetry, blood pressure. Hold Coumadin. Have PT address back and hip pain. Continue with IV Lasix, repeat labs in am. Obtain echocardiogram 03-04-2019 Patient states is feeling better than yesterday. Less shortness of breath. Continues to require oxygen as sats do drop to low 90s if reduced down to 2 liters. Temp 99.0. WBC remains normal at 8.9, CRP 7.9. Electrolytes normal, creatinine 1.6. INR still high at 3.7, Coumadin continues to be held. Blood pressures low today, 80-90/40s. Will repeat labs and chest xray in am. Reduce Metoprolol. Hold Losartan. Continue to try to wean off oxygen. Reevaluate discharge potential in am.
[2019-03-05] MEDS ORDERED: Metoprolol Tartrate 25 MG Tab PO SCH (08:00)
[2019-03-05] MEDS: Aspirin 325 MG Tab.EC PO SCH (08:09)
[2019-03-05] MEDS: Albuterol/Ipratropium 3.0-0.5 MG/3 ML Neb Soln NEB SCH (08:09)
[2019-03-05] MEDS: Furosemide 40 MG/4 ML VIAL IVPUSH SCH (08:09)
[2019-03-05] MEDS: Digoxin 125 MCG Tab PO SCH (08:10)
[2019-03-05] MEDS: Magnesium Chloride 64 MG Tab.ER PO SCH (08:10)
[2019-03-05] MEDS: Insulin Lispro 100 Units/ML 3 ML Vial SUBCUT SCH ×2 (08:11→09:41)
[2019-03-05] MEDS: BRINZOLAMIDE EYEBOTH SCH (08:11)
[2019-03-05 08:13] VITALS: BP 99/39
[2019-03-05] MEDS: Losartan 25 MG Tab PO SCH (09:41)
--- NOTE | 2019-03-05 13:14 | PCM.DCSUM1 ---
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 3 systolic heart failure, last known ejection fracture less than 20% Qualifiers: Heart failure type: systolic Heart failure chronicity: acute on chronic Qualified Code(s): I50.23 - Acute on chronic systolic (congestive) heart failure - Patient Summary/Data Consults: Consultations 03/02/19 15:41 Consult to Case Management/Offshore Wind Operations Manager [CONS] Routine PT Evaluation and Treatment [CONS] Routine - Discharge Plan *PRESCRIPTION DRUG MONITORING PROGRAM REVIEWED*: Not Applicable *COPY OF PRESCRIPTION DRUG MONITORING REPORT IN PATIENT [place]: Not Applicable Home Medications: Home Meds Brinzolamide [Azopt 1% Ophth Susp] 1 drop EYEBOTH BID 07/21/14 [History] Travoprost [Travatan Z 0.004% Ophth Soln] 1 drop EYEBOTH DAILY 07/21/14 [History ] Aspirin [Ecotrin] 325 mg PO DAILY 05/09/16 [History] Digoxin 125 mcg PO DAILY 05/09/16 [History] Losartan [Cozaar] 50 mg PO DAILY 05/09/16 [History] Magnesium 500 mg PO DAILY 05/09/16 [History] Metoprolol Succinate 100 mg PO BID 05/09/16 [History] Nitroglycerin [Nitrostat] 0.4 mg SL ASDIRECTED 05/09/16 [History] Warfarin [Coumadin] 5 mg PO DAILY 05/09/16 [History] Furosemide 40 mg PO BID 02/03/17 [History] Albuterol/Ipratropium [DuoNeb 3.0-0.5 MG/3 ML] 3 ml NEB Q4H PRN #0 neb 02/19/17 [Rx] Insulin Detemir [Levemir] 20 unit SUBCUT BEDTIME pen 02/19/17 [Rx] Tamsulosin [Flomax] 0.4 mg PO BEDTIME cap.er 06/13/17 [Rx] Cholecalciferol (Vitamin D3) [Vitamin D3] 1 tab PO DAILY 03/02/19 [History] Finasteride 1 tab PO BEDTIME 03/02/19 [History] Flaxseed/Omega3,6,9/Fatty Acid [Flax Seed Oil 1,300 mg Softgel] 1,000 mg PO DAILY 03/02/19 [History] Insulin Aspart [NovoLOG] 10 units SQ BID 03/03/19 [History] Patient Handouts: Heart Failure Forms: ED Department Discharge Referrals: Vsaile Salinas MD [Primary Care Provider] - - Patient Data Vitals - Most Recent: Last Vital Signs Temp 98.9 F 03/05/19 08:00 Pulse 88 03/05/19 08:10 Resp 18 03/05/19 08:00 BP 99/39 L 03/05/19 08:00 Pulse Ox 98 03/05/19 08:00 Weight - Most Recent: 175 lb 9.6 oz I&O - Last 24 hours: Intake & Output 03/04/19 03/05/19 03/05/19 22:59 06:59 14:59 Intake Total 340 Output Total 1300 300 Balance -1300 40 Lab Results - Last 24 hrs: Laboratory Results - last 24 hr 03/04/19 03/04/19 03/05/19 Range/Units 16:57 21:09 06:50 WBC 8.3 (5.0-10.0) 10^3/uL RBC 4.25 L (4.50-6.00) 10^6/uL Hgb 12.3 L (14.0-18.0) g/dL Hct 37.6 L (40.0-54.0) % MCV 88.5 (82.0-94.0) fL MCH 28.9 (27.0-32.0) pg MCHC 32.7 L (33.0-38.0) g/dL RDW Coeff of Shi 11.9 (11.0-15.0) % Plt Count 221 (150-400) 10^3/uL Add Manual Diff Yes Neutrophils % (Manual) 63 (35-85) % Band Neutrophils % 2 (0-5) % Lymphocytes % (Manual) 13 L (21-55) % Monocytes % (Manual) 17 H (2-12) % Eosinophils % (Manual) 5 (0-5) % PT (9.7-12.3) SEC INR (0.92-1.18) Sodium (136-145) mEq/L Potassium (3.5-5.0) mEq/L Chloride (98-106) mEq/L Carbon Dioxide (21-32) mmol/L BUN (7-18) mg/dL Creatinine (0.7-1.3) mg/dL Est Cr Clr Drug Dosing mL/min Estimated GFR (MDRD) (>=60) mL/min Glucose (75-99) mg/dL POC Glucose 221 H 181 H (75-105) mg/dl Calcium (8.4-10.1) mg/dL Magnesium (1.8-2.4) mg/dL C-Reactive Protein (0.2-0.8) mg/dL 03/05/19 03/05/19 Range/Units 06:50 06:50 WBC (5.0-10.0) 10^3/uL RBC (4.50-6.00) 10^6/uL Hgb (14.0-18.0) g/dL Hct (40.0-54.0) % MCV (82.0-94.0) fL MCH (27.0-32.0) pg MCHC (33.0-38.0) g/dL RDW Coeff of Shi (11.0-15.0) % Plt Count (150-400) 10^3/uL Add Manual Diff Neutrophils % (Manual) (35-85) % Band Neutrophils % (0-5) % Lymphocytes % (Manual) (21-55) % Monocytes % (Manual) (2-12) % Eosinophils % (Manual) (0-5) % PT 20.0 H (9.7-12.3) SEC INR 2.02 H (0.92-1.18) Sodium 133 L (136-145) mEq/L Potassium 4.6 (3.5-5.0) mEq/L Chloride 97 L (98-106) mEq/L Carbon Dioxide 31 (21-32) mmol/L BUN 51 H (7-18) mg/dL Creatinine 1.6 H (0.7-1.3) mg/dL Est Cr Clr Drug Dosing 32.13 mL/min Estimated GFR (MDRD) 41 L (>=60) mL/min Glucose 125 H (75-99) mg/dL POC Glucose (75-105) mg/dl Calcium 9.7 (8.4-10.1) mg/dL Magnesium 2.2 (1.8-2.4) mg/dL C-Reactive Protein 6.5 H (0.2-0.8) mg/dL Med Orders - Current: Current Medications Discontinued Medications Acetaminophen (Tylenol) 650 mg PO Q4H PRN PRN Reason: Pain (Mild 1-3)/fever Albuterol/Ipratropium (Duoneb 3.0-0.5 Mg/3 Ml) 3 ml NEB Q4H PRN PRN Reason: Cough Last Admin: 03/03/19 07:18 Dose: 3 ml Albuterol/Ipratropium (Duoneb 3.0-0.5 Mg/3 Ml) 3 ml NEB BID [facility] Last Admin: 03/05/19 08:09 Dose: 3 ml Aspirin (Ecotrin) 325 mg PO DAILY [facility] Last Admin: 03/05/19 08:09 Dose: 325 mg Digoxin (Lanoxin) 125 mcg PO DAILY [facility] Last Admin: 03/05/19 08:10 Dose: 125 mcg Docusate Sodium (Colace) 100 mg PO BID PRN PRN Reason: Constipation Finasteride (Proscar) 5 mg PO BEDTIME [facility] Last Admin: 03/04/19 19:19 Dose: 5 mg Furosemide (Lasix) 40 mg IVPUSH BIDDIURETIC [facility] Last Admin: 03/05/19 08:09 Dose: 40 mg Ibuprofen (Motrin) 400 mg PO Q6H PRN PRN Reason: Pain (mild 1-3) Insulin Glargine (Lantus Solostar) 20 units SUBCUT BEDTIME [facility] Last Admin: 03/04/19 21:14 Dose: 20 units Insulin Human Lispro (Humalog) 10 unit SUBCUT TIDMEALS [facility] Last Admin: 03/03/19 08:35 Dose: 10 unit Insulin Human Lispro (Humalog) 0 unit SUBCUT QID [facility]; Protocol Last Admin: 03/02/19 16:42 Dose: Not Given Insulin Human Lispro (Humalog) 0 unit SUBCUT 0800,1200,1730,2000 [facility]; Protocol Last Admin: 03/05/19 08:11 Dose: Not Given Insulin Human Lispro (Humalog) 10 unit SUBCUT BID [facility] Last Admin: 03/05/19 09:41 Dose: Not Given Latanoprost (Xalatan 0.005% Ophth Soln) 0 ml EYEBOTH DAILY [facility] Last Admin: 03/04/19 08:02 Dose: 1 drop Losartan Potassium (Cozaar) 50 mg PO DAILY [facility] Last Admin: 03/05/19 09:41 Dose: Not Given Magnesium Chloride (Mag-64) 64 mg PO DAILY [facility] Last Admin: 03/05/19 08:10 Dose: 64 mg Metoprolol Succinate (Toprol Xl) 100 mg PO BID [facility] Last Admin: 03/04/19 07:53 Dose: 100 mg Metoprolol Tartrate (Lopressor) 12.5 mg PO BID [facility] Last Admin: 03/05/19 09:42 Dose: Not Given Nitroglycerin (Nitrostat) 0.4 mg SL ASDIRECTED PRN PRN Reason: Chest Pain Ptom Brinzolamide [Azopt 1% Ophth Susp] 1 drop EYEBOTH BID [facility] Last Admin: 03/05/19 08:11 Dose: 1 drop Polyethylene Glycol (Miralax) 17 gm PO DAILY PRN PRN Reason: Constipation Last Admin: 03/04/19 21:27 Dose: 17 gm Sodium Chloride (Saline Flush) 10 ml FLUSH ASDIRECTED PRN PRN Reason: Keep Vein Open Tamsulosin HCl (Flomax) 0.4 mg PO BEDTIME [facility] Last Admin: 03/04/19 19:20 Dose: 0.4 mg *Q Meaningful Use (DIS) - VTE *Q VTE Anticoagulation Contraindications: Med/TX Not Indicated/Need
== END 2019-03-05 09:00 | disposition swing bed (61) | DRG 293 ==
LOC: CC.ED 13:53 → CC.MS 15:14 → UNDOADMIN 15:41 → CC.MS 15:41
PROVIDERS: ADMIT Nurse Practitioner Family; ATTEND Family Medicine
DX: I11.0 Hypertensive heart disease with heart failure (principal); I50.23 Acute on chronic systolic (congestive) heart failure; R79.1 Abnormal coagulation profile; E11.59 Type 2 diabetes mellitus with other circulatory complications; I48.0 Paroxysmal atrial fibrillation; I42.9 Cardiomyopathy, unspecified; E78.00 Pure hypercholesterolemia, unspecified; K21.9 Gastro-esophageal reflux disease without esophagitis; R33.9 Retention of urine, unspecified; M19.90 Unspecified osteoarthritis, unspecified site; E11.40 Type 2 diabetes mellitus with diabetic neuropathy, unspecified; H40.9 Unspecified glaucoma; I25.2 Old myocardial infarction; Z96.649 Presence of unspecified artificial hip joint; Z88.8 Allergy status to other drugs, medicaments and biological substances; Z79.01 Long term (current) use of anticoagulants; Z79.82 Long term (current) use of aspirin; Z79.4 Long term (current) use of insulin; Z79.899 Other long term (current) drug therapy; Z95.1 Presence of aortocoronary bypass graft; Z95.5 Presence of coronary angioplasty implant and graft; Z87.891 Personal history of nicotine dependence; R53.83 Other fatigue; R06.00 Dyspnea, unspecified; R06.01 Orthopnea; Z51.5 Encounter for palliative care; R60.9 Edema, unspecified; M54.9 Dorsalgia, unspecified; R51 Headache; R53.1 Weakness; R53.81 Other malaise; R05 Cough; R63.0 Anorexia; R06.02 Shortness of breath; R26.2 Difficulty in walking, not elsewhere classified; I69.398 Other sequelae of cerebral infarction
CPT/HCPCS: 36415; 71046; 80048; 80053; 81003; 82962; 83735; 83880; 84484; 85025; 85610; 86140; 93005; 93010; 93306; 94640; 97161-GP; 97530-GP; 99285-25; A9270-GY; J1815; J1815-GY; J1940; J7620-GY

== ENCOUNTER 2019-03-05 09:02 | Inpatient (IN) | payer MEDICARE, BC ==
[2019-03-05] MEDS ORDERED: Ibuprofen 200 MG Tab PO PRN (09:54)
[2019-03-05] MEDS ORDERED: Nitroglycerin 0.4 MG Tab.SL SL PRN (09:54)
[2019-03-05] MEDS ORDERED: Albuterol/Ipratropium 3.0-0.5 MG/3 ML Neb Soln NEB PRN (09:54)
[2019-03-05] MEDS ORDERED: Polyethylene Glycol 3350 Powder 17 GM Packet PO PRN (09:54)
[2019-03-05] MEDS ORDERED: Sodium Chloride 0.9% 10 ML Syringe FLUSH PRN ×2 (09:54)
[2019-03-05] MEDS ORDERED: Docusate Sodium 100 MG Cap PO PRN (09:54)
[2019-03-05] MEDS: Insulin Lispro 100 Units/ML 3 ML Vial SUBCUT SCH ×4 (12:49→21:06)
[2019-03-05] MEDS: Warfarin 2.5 MG Tab PO SCH (17:21)
[2019-03-05] MEDS: Carvedilol 3.125 MG Tab PO SCH (17:22)
[2019-03-05] MEDS: Tamsulosin 0.4 MG Cap.ER PO SCH (19:37)
[2019-03-05] MEDS: Finasteride 5 MG Tab PO SCH (19:37)
[2019-03-05] MEDS: Metoprolol Tartrate 25 MG Tab PO SCH (19:40)
[2019-03-05] MEDS: Non-Formulary Medication 1 Each (Brinzolamide [Azopt 1% Ophth Susp] 1 DROP) EYEBOTH SCH (19:41)
[2019-03-05] MEDS: Albuterol/Ipratropium 3.0-0.5 MG/3 ML Neb Soln NEB SCH (19:44)
[2019-03-05] MEDS: Insulin Glargine,Human Rec. Analog 100 Units/ML 3 ML Pen SUBCUT SCH (21:08)
[2019-03-06] MEDS: Non-Formulary Medication 1 Each (Brinzolamide [Azopt 1% Ophth Susp] 1 DROP) EYEBOTH SCH ×2 (07:52→19:37)
[2019-03-06] MEDS: Latanoprost 0.005% Ophth Soln 2.5 ML Bottle EYEBOTH SCH (08:06)
[2019-03-06] MEDS: Insulin Lispro 100 Units/ML 3 ML Vial SUBCUT SCH ×6 (08:07→19:44)
[2019-03-06] MEDS: Aspirin 325 MG Tab.EC PO SCH (08:14)
[2019-03-06] MEDS: Furosemide 40 MG Tab PO SCH (08:14)
[2019-03-06] MEDS: Magnesium Chloride 64 MG Tab.ER PO SCH (08:14)
[2019-03-06] MEDS: Digoxin 125 MCG Tab PO SCH (08:15)
[2019-03-06] MEDS: Carvedilol 3.125 MG Tab PO SCH ×2 (08:15→17:33)
[2019-03-06] MEDS: Losartan 25 MG Tab PO SCH (08:16)
[2019-03-06] MEDS: Metoprolol Tartrate 25 MG Tab PO SCH ×2 (08:16→19:34)
[2019-03-06] MEDS: Albuterol/Ipratropium 3.0-0.5 MG/3 ML Neb Soln NEB SCH ×2 (08:46→19:36)
[2019-03-06] MEDS: Warfarin 2.5 MG Tab PO SCH (12:04)
[2019-03-06] MEDS: Tamsulosin 0.4 MG Cap.ER PO SCH (19:34)
[2019-03-06] MEDS: Finasteride 5 MG Tab PO SCH (19:35)
[2019-03-06] MEDS: Insulin Glargine,Human Rec. Analog 100 Units/ML 3 ML Pen SUBCUT SCH (19:41)
[2019-03-07] MEDS: Albuterol/Ipratropium 3.0-0.5 MG/3 ML Neb Soln NEB SCH ×2 (07:50→19:09)
[2019-03-07] MEDS: Magnesium Chloride 64 MG Tab.ER PO SCH (07:50)
[2019-03-07] MEDS: Furosemide 40 MG Tab PO SCH (07:50)
[2019-03-07] MEDS: Aspirin 325 MG Tab.EC PO SCH (07:50)
[2019-03-07] MEDS: Non-Formulary Medication 1 Each (Brinzolamide [Azopt 1% Ophth Susp] 1 DROP) EYEBOTH SCH ×2 (07:55→19:08)
[2019-03-07] MEDS: Losartan 25 MG Tab PO SCH (07:56)
[2019-03-07] MEDS: Latanoprost 0.005% Ophth Soln 2.5 ML Bottle EYEBOTH SCH (07:56)
[2019-03-07] MEDS: Insulin Lispro 100 Units/ML 3 ML Vial SUBCUT SCH ×6 (08:01→19:08)
[2019-03-07] MEDS: Metoprolol Tartrate 25 MG Tab PO SCH ×2 (08:16→19:09)
[2019-03-07] MEDS: Carvedilol 3.125 MG Tab PO SCH ×2 (08:16→17:55)
[2019-03-07] MEDS: Digoxin 125 MCG Tab PO SCH (08:17)
[2019-03-07] MEDS: Warfarin 2.5 MG Tab PO SCH (11:48)
[2019-03-07] MEDS: Insulin Glargine,Human Rec. Analog 100 Units/ML 3 ML Pen SUBCUT SCH (19:07)
[2019-03-07] MEDS: Tamsulosin 0.4 MG Cap.ER PO SCH (19:09)
[2019-03-07] MEDS: Finasteride 5 MG Tab PO SCH (19:09)
[2019-03-08] MEDS: Insulin Lispro 100 Units/ML 3 ML Vial SUBCUT SCH ×6 (07:51→19:25)
[2019-03-08] MEDS: Furosemide 40 MG Tab PO SCH (07:52)
[2019-03-08] MEDS: Aspirin 325 MG Tab.EC PO SCH (07:52)
[2019-03-08] MEDS: Magnesium Chloride 64 MG Tab.ER PO SCH (07:52)
[2019-03-08] MEDS: Digoxin 125 MCG Tab PO SCH (07:53)
[2019-03-08] MEDS: Latanoprost 0.005% Ophth Soln 2.5 ML Bottle EYEBOTH SCH (07:55)
[2019-03-08] MEDS: Non-Formulary Medication 1 Each (Brinzolamide [Azopt 1% Ophth Susp] 1 DROP) EYEBOTH SCH ×2 (07:55→19:50)
[2019-03-08] MEDS: Losartan 25 MG Tab PO SCH (08:01)
[2019-03-08] MEDS: Albuterol/Ipratropium 3.0-0.5 MG/3 ML Neb Soln NEB SCH ×2 (08:06→19:29)
[2019-03-08] MEDS: Warfarin 2.5 MG Tab PO SCH (11:59)
[2019-03-08] MEDS: Carvedilol 3.125 MG Tab PO SCH ×2 (11:59→17:26)
[2019-03-08] MEDS: Metoprolol Tartrate 25 MG Tab PO SCH ×2 (11:59→19:28)
[2019-03-08] MEDS: Finasteride 5 MG Tab PO SCH (19:28)
[2019-03-08] MEDS: Tamsulosin 0.4 MG Cap.ER PO SCH (19:28)
[2019-03-08] MEDS: Insulin Glargine,Human Rec. Analog 100 Units/ML 3 ML Pen SUBCUT SCH (19:29)
[2019-03-09] MEDS: Aspirin 325 MG Tab.EC PO SCH (07:50)
[2019-03-09] MEDS: Magnesium Chloride 64 MG Tab.ER PO SCH (07:51)
[2019-03-09] MEDS: Digoxin 125 MCG Tab PO SCH (07:51)
[2019-03-09] MEDS: Losartan 25 MG Tab PO SCH (07:51)
[2019-03-09] MEDS: Carvedilol 3.125 MG Tab PO SCH (07:51)
[2019-03-09] MEDS: Metoprolol Tartrate 25 MG Tab PO SCH (07:52)
[2019-03-09] MEDS: Albuterol/Ipratropium 3.0-0.5 MG/3 ML Neb Soln NEB SCH (07:54)
[2019-03-09 07:55] VITALS: BP 125/61
[2019-03-09] MEDS: Insulin Lispro 100 Units/ML 3 ML Vial SUBCUT SCH ×2 (07:56→07:59)
[2019-03-09] MEDS: Non-Formulary Medication 1 Each (Brinzolamide [Azopt 1% Ophth Susp] 1 DROP) EYEBOTH SCH (07:57)
[2019-03-09] MEDS: Latanoprost 0.005% Ophth Soln 2.5 ML Bottle EYEBOTH SCH (07:58)
[2019-03-09] MEDS: Furosemide 40 MG Tab PO SCH (08:03)
--- NOTE | 2019-03-09 09:05 | PCM.DCSUM1 ---
Discharge Summary - Hospital Course Free Text/Narrative:: Patient presented to ER with complaints of increased weakness, headache and backache. had stated patient had not been active over the last few days. Complaining of more shortness of breath as of late, productive cough and malaise. History of CVA with right side weakness but having more difficulty with ambulating than usual. Family reports has been declining over the last few months. NO nausea/vomiting/chest pain. Labs show elevation of ProBNP near 3500. CRP 8.3. Chest xray shows edema/ congestion consistent with CHF. Creatinine 1.6 which is stable. Has chronic atrial fib, on anticoagulation. INR high at 4.6. Admitted and started on IV Lasix. Coumadin has been on hold. Creatinine has stabilized to 1.3. INR down to 2.02 so Coumadin was restarted at half dose 2.5 mg daily. Blood pressure was low through much of stay. Losartan was decreased to 25 mg. Metoprolol was switched to Coreg 3.125 mg BID. Telemetry continues to show atrial fib, rate in the 90s. Transferred to swing bed for ongoing therapy, monitoring blood pressure with probable plans to transfer to the correction. Diagnosis: Stroke: No Modified Norton Scale: No Symptoms at All Modified Norton Scale Score: 0 - Discharge Data Discharge Date: 03/09/19 Discharge Disposition: DC/[facility] to [facility] Condition: Fair - Patient Summary/Data Consults: Consultations 03/05/19 09:54 Consult to Case Management/International Sales Manager [CONS] Routine PT Evaluation and Treatment [CONS] Routine Hospital Course: Patient is doing well. Feels less short of breath. Telemetry shows atrial fib with rate in 90-100. Denies any chest pain. No edema. Remains yet on oxygen to keep sats up. He is still weak and unsteady, requires standby assist and walker. Blood pressure this am 125/61. Eating well Will transfer to [facility] this am. Patient is aware and agrees with plan. Will continue therapy there. Increase Coreg dose due to heart rate. Repeat INR in 2 weeks due to change in Coumadin dose while here. - Patient Instructions Diet: Diabetic Diet Activity: As Tolerated - Discharge Plan *PRESCRIPTION DRUG MONITORING PROGRAM REVIEWED*: No *COPY OF PRESCRIPTION DRUG MONITORING REPORT IN PATIENT [place]: No Prescriptions/Med Rec: Carvedilol [Coreg] 3.125 mg PO BIDM #60 tablet Furosemide [Lasix] 60 mg PO DAILY #30 tablet Losartan [Cozaar] 25 mg PO DAILY #30 tablet Polyethylene Glycol 3350 [MiraLAX] 17 gm PO DAILY PRN #30 packet PRN Reason: Constipation Warfarin [Coumadin] 2.5 mg PO DAILY@1200 #30 tablet Home Medications: Home Meds Brinzolamide [Azopt 1% Ophth Susp] 1 drop EYEBOTH BID 07/21/14 [History] Travoprost [Travatan Z 0.004% Ophth Soln] 1 drop EYEBOTH DAILY 07/21/14 [History ] Aspirin [Ecotrin] 325 mg PO DAILY 05/09/16 [History] Digoxin 125 mcg PO DAILY 05/09/16 [History] Magnesium 500 mg PO DAILY 05/09/16 [History] Nitroglycerin [Nitrostat] 0.4 mg SL ASDIRECTED 05/09/16 [History] Albuterol/Ipratropium [DuoNeb 3.0-0.5 MG/3 ML] 3 ml NEB Q4H PRN #0 neb 02/19/17 [Rx] Insulin Detemir [Levemir] 20 unit SUBCUT BEDTIME pen 02/19/17 [Rx] Tamsulosin [Flomax] 0.4 mg PO BEDTIME cap.er 02/19/17 [Rx] Cholecalciferol (Vitamin D3) [Vitamin D3] 1 tab PO DAILY 03/02/19 [History] Finasteride 1 tab PO BEDTIME 03/02/19 [History] Flaxseed/Omega3,6,9/Fatty Acid [Flax Seed Oil 1,300 mg Softgel] 1,000 mg PO DAILY 03/02/19 [History] Insulin Aspart [NovoLOG] 10 units SQ BID 03/03/19 [History] Carvedilol [Coreg] 3.125 mg PO BIDM #60 tablet 03/09/19 [Rx] Furosemide [Lasix] 60 mg PO DAILY #30 tablet 03/09/19 [Rx] Losartan [Cozaar] 25 mg PO DAILY #30 tablet 03/09/19 [Rx] Polyethylene Glycol 3350 [MiraLAX] 17 gm PO DAILY PRN #30 packet 03/09/19 [Rx] Warfarin [Coumadin] 2.5 mg PO DAILY@1200 #30 tablet 03/09/19 [Rx] - Discharge Summary/Plan Comment DC Time >30 min.: Yes Discharge Summary/Plan Comment: Transfer to [facility] Time for evaluation and discussion with patient 15 minutes Time for orders 15 minutes Time for documentation 10 minutes - General Info Date of Service: 03/09/19 Admission Dx/Problem (Free Text: Acute on Chronic Stage 3 Systolic CHF Functional Status: Reports: Pain Controlled, Tolerating Diet, Ambulating - Review of Systems General: Reports: Weakness, Fatigue, Malaise HEENT: Denies: Ear Pain, Sore Throat, Rhinitis Pulmonary: Reports: Shortness of Breath, Cough, Sputum Cardiovascular: Denies: Chest Pain, Edema, Lightheadedness Gastrointestinal: Denies: Abdominal Pain, Nausea, Vomiting Genitourinary: Reports: No Symptoms Musculoskeletal: Reports: No Symptoms Skin: Reports: No Symptoms Neurological: Reports: Weakness - Patient Data Vitals - Most Recent: Last Vital Signs Temp 97.1 F 03/08/19 20:00 Pulse 60 03/09/19 07:52 Resp 20 03/08/19 20:00 BP 125/61 03/09/19 07:52 Pulse Ox 97 03/08/19 20:00 Weight - Most Recent: 173 lb 6.4 oz Lab Results - Last 24 hrs: Laboratory Results - last 24 hr 03/08/19 03/08/19 03/08/19 Range/Units 07:44 11:58 17:12 POC Glucose 131 H 149 H 205 H (75-105) mg/dl 03/08/19 03/09/19 Range/Units 19:23 07:22 POC Glucose 260 H 136 H (75-105) mg/dl Med Orders - Current: Current Medications Albuterol/Ipratropium (Duoneb 3.0-0.5 Mg/3 Ml) 3 ml NEB Q4H PRN PRN Reason: Cough Albuterol/Ipratropium (Duoneb 3.0-0.5 Mg/3 Ml) 3 ml NEB BID [facility] Last Admin: 03/09/19 07:54 Dose: 3 ml Aspirin (Ecotrin) 325 mg PO DAILY [facility] Last Admin: 03/09/19 07:50 Dose: 325 mg Carvedilol (Coreg) 3.125 mg PO BIDM [facility] Last Admin: 03/09/19 07:51 Dose: 3.125 mg Digoxin (Lanoxin) 125 mcg PO DAILY [facility] Last Admin: 03/09/19 07:51 Dose: 125 mcg Docusate Sodium (Colace) 100 mg PO BID PRN PRN Reason: Constipation Finasteride (Proscar) 5 mg PO BEDTIME [facility] Last Admin: 03/08/19 19:28 Dose: 5 mg Furosemide (Lasix) 60 mg PO DAILY [facility] Last Admin: 03/09/19 08:03 Dose: 60 mg Ibuprofen (Motrin) 400 mg PO Q6H PRN PRN Reason: Pain (mild 1-3) Insulin Glargine (Lantus Solostar) 20 units SUBCUT BEDTIME [facility] Last Admin: 03/08/19 19:29 Dose: 20 units Insulin Human Lispro (Humalog) 0 unit SUBCUT 0800,1200,1730,2000 [facility]; Protocol Last Admin: 03/09/19 07:56 Dose: Not Given Insulin Human Lispro (Humalog) 10 unit SUBCUT BID [facility] Last Admin: 03/09/19 07:59 Dose: 10 units Latanoprost (Xalatan 0.005% Ophth Soln) 0 ml EYEBOTH DAILY [facility] Last Admin: 03/09/19 07:58 Dose: 1 drop Losartan Potassium (Cozaar) 25 mg PO DAILY [facility] Last Admin: 03/09/19 07:51 Dose: 25 mg Magnesium Chloride (Mag-64) 64 mg PO DAILY [facility] Last Admin: 03/09/19 07:51 Dose: 64 mg Metoprolol Tartrate (Lopressor) 12.5 mg PO BID [facility] Last Admin: 03/09/19 07:52 Dose: 12.5 mg Nitroglycerin (Nitrostat) 0.4 mg SL ASDIRECTED PRN PRN Reason: Chest Pain Non-Formulary Medication (Brinzolamide [Azopt 1% Ophth Susp]) 1 drop EYEBOTH BID [facility] Last Admin: 03/09/19 07:57 Dose: 1 drop Polyethylene Glycol (Miralax) 17 gm PO DAILY PRN PRN Reason: Constipation Sodium Chloride (Saline Flush) 10 ml FLUSH ASDIRECTED PRN PRN Reason: Keep Vein Open Tamsulosin HCl (Flomax) 0.4 mg PO BEDTIME [facility] Last Admin: 03/08/19 19:28 Dose: 0.4 mg Warfarin Sodium (Coumadin) 2.5 mg PO DAILY@1200 [facility] Last Admin: 03/08/19 11:59 Dose: 2.5 mg Discontinued Medications Sodium Chloride (Saline Flush) 10 ml FLUSH ASDIRECTED PRN PRN Reason: Keep Vein Open - Exam Quality Assessment: Reports: Supplemental Oxygen General: Reports: Alert, Oriented HEENT: Reports: Mucous Membr. Moist/[place] Neck: Reports: Supple Lungs: Reports: Clear to Auscultation, Normal Respiratory Effort Cardiovascular: Reports: Irregular Rhythm GI/Abdominal Exam: Normal Bowel Sounds, Soft, Non-Tender Extremities: Normal Inspection, No Pedal Edema Skin: Reports: Warm, Dry Neurological: Reports: No New Focal Deficit *Q Meaningful Use (DIS) - VTE *Q VTE Anticoagulation Contraindications: Med/TX Not Indicated/Need
== END 2019-03-09 11:00 | DRG 292 ==
LOC: CC.MS 09:02 → UNDOADMIN 09:44 → CC.MS 09:44
PROVIDERS: ADMIT Physician Assistant Medical; ATTEND Family Medicine
DX: I50.23 Acute on chronic systolic (congestive) heart failure (principal); I69.351 Hemiplegia and hemiparesis following cerebral infarction affecting right dominant side; I48.0 Paroxysmal atrial fibrillation; Z79.01 Long term (current) use of anticoagulants; Z79.899 Other long term (current) drug therapy; Z79.82 Long term (current) use of aspirin
CPT/HCPCS: 82962; 94640; 97110-GP; A9270-GY; J7620-GY

== ENCOUNTER 2020-06-15 11:13 | Inpatient (IN) | payer MEDICARE, BC ==
[2020-06-15 12:32] LABS: CHLORIDE,CL 100 mEq/L (98-106); SODIUM,NA 137 mEq/L (136-145)
[2020-06-15] MEDS ORDERED: Sodium Chloride 0.9% 10 ML Syringe FLUSH PRN (13:03)
[2020-06-15] MEDS ORDERED: Furosemide 40 MG/4 ML VIAL IVPUSH SCH (13:15)
[2020-06-15] MEDS: Insulin Lispro 100 Units/ML 3 ML Vial SUBCUT SCH (17:43)
[2020-06-15] MEDS ORDERED: Albuterol/Ipratropium 3.0-0.5 MG/3 ML Neb Soln NEB PRN (19:50)
[2020-06-15] MEDS: Simvastatin 40 MG Tab PO SCH (20:20)
[2020-06-15] MEDS: Latanoprost 0.005% Ophth Soln 2.5 ML Bottle EYEBOTH SCH (20:20)
[2020-06-15] MEDS: Carvedilol 6.25 MG Tab PO SCH (20:20)
[2020-06-15] MEDS: Tamsulosin 0.4 MG Cap.ER PO SCH (20:20)
[2020-06-15] MEDS: Albuterol/Ipratropium 3.0-0.5 MG/3 ML Neb Soln NEB SCH (20:22)
[2020-06-15] MEDS: Insulin Glarg,Human.Rec.Analog 100 Unit/ML SUBCUT SCH (20:37)
[2020-06-16] MEDS: Furosemide 40 MG/4 ML VIAL IVPUSH SCH ×2 (07:57→15:49)
[2020-06-16] MEDS: Albuterol/Ipratropium 3.0-0.5 MG/3 ML Neb Soln NEB SCH ×3 (07:58→20:37)
[2020-06-16] MEDS: Finasteride 5 MG Tab PO SCH (08:33)
[2020-06-16] MEDS: Digoxin 125 MCG Tab PO SCH (08:33)
[2020-06-16] MEDS: Insulin Lispro 100 Units/ML 3 ML Vial SUBCUT SCH ×2 (10:54→18:01)
[2020-06-16] MEDS: Carvedilol 6.25 MG Tab PO SCH ×2 (10:54→19:37)
[2020-06-16] MEDS: Losartan 25 MG Tab PO SCH (10:54)
[2020-06-16] MEDS: Tamsulosin 0.4 MG Cap.ER PO SCH (19:36)
[2020-06-16] MEDS: Simvastatin 40 MG Tab PO SCH (19:36)
[2020-06-16] MEDS: Latanoprost 0.005% Ophth Soln 2.5 ML Bottle EYEBOTH SCH (19:43)
[2020-06-16] MEDS: Dorzolamide 2% Ophth Soln 10 ML Bottle EYEBOTH SCH (19:44)
[2020-06-16] MEDS: Insulin Glarg,Human.Rec.Analog 100 Unit/ML SUBCUT SCH (20:38)
--- NOTE | 2020-06-16 20:57 | PCM.PN ---
- General Info Date of Service: 06/16/20 Admission Dx/Problem (Free Text): CHF Exacerbation Hypoxia Functional Status: Reports: Pain Controlled, Tolerating Diet, Ambulating - Review of Systems General: Reports: Weakness HEENT: Reports: No Symptoms Pulmonary: Reports: Shortness of Breath, Cough Cardiovascular: Reports: Edema. Denies: Chest Pain, Lightheadedness Gastrointestinal: Reports: No Symptoms Genitourinary: Reports: No Symptoms Musculoskeletal: Reports: No Symptoms Skin: Reports: No Symptoms Neurological: Reports: Weakness - Patient Data Vitals - Most Recent: Last Vital Signs Temp 97.7 F 06/16/20 19:49 Pulse 92 06/16/20 19:49 Resp 20 06/16/20 19:49 BP 111/57 L 06/16/20 19:49 Pulse Ox 92 L 06/16/20 19:49 Weight - Most Recent: 180 lb 6.4 oz I&O - Last 24 Hours: Intake & Output 06/16/20 06/16/20 06/16/20 06:59 14:59 22:59 Intake Total 400 1700 Output Total 078 400 3864 Balance -200 -200 -300 Lab Results Last 24 Hours: Laboratory Results - last 24 hr 06/16/20 06/16/20 06/16/20 Range/Units 05:11 05:11 05:11 WBC 5.9 (5.0-10.0) 10^3/uL RBC 4.05 L (4.50-6.00) 10^6/uL Hgb 10.1 L (14.0-18.0) g/dL Hct 35.1 L (40.0-54.0) % MCV 86.7 (82.0-94.0) fL MCH 24.9 L (27.0-32.0) pg MCHC 28.8 L (33.0-38.0) g/dL RDW Coeff of Shi 16.3 H (11.0-15.0) % Plt Count 126 L (150-400) 10^3/uL Neut % (Auto) 69.5 (35-85) % Lymph % (Auto) 9.3 L (10-55) % [place] % (Auto) 18.4 H (0-16) % Eos % (Auto) 2.5 (0-5) % Baso % (Auto) 0.3 (0-3) % Neut # (Auto) 4.10 (1.80-7.00) 10^3/uL Lymph # (Auto) 0.55 L (1.00-4.80) 10^3/uL [place] # (Auto) 1.09 H (0.00-0.80) 10^3/uL Eos # (Auto) 0.15 (0.00-0.45) 10^3/uL Baso # (Auto) 0.02 10^3/uL PT 32.2 H (9.7-12.3) SEC INR 3.23 H (0.92-1.18) Sodium 138 (136-145) mEq/L Potassium 4.1 (3.5-5.0) mEq/L Chloride 101 (98-106) mEq/L Carbon Dioxide 32 (21-32) mmol/L BUN 36 H (7-18) mg/dL Creatinine 1.5 H (0.7-1.3) mg/dL Est Cr Clr Drug Dosing 34.83 mL/min Estimated GFR (MDRD) 44 L (>=60) mL/min Glucose 99 D (75-99) mg/dL POC Glucose (75-105) mg/dl Calcium 8.3 L (8.4-10.1) mg/dL C-Reactive Protein 4.7 H (0.2-0.8) mg/dL 06/16/20 06/16/20 06/16/20 Range/Units 07:50 12:34 17:27 WBC (5.0-10.0) 10^3/uL RBC (4.50-6.00) 10^6/uL Hgb (14.0-18.0) g/dL Hct (40.0-54.0) % MCV (82.0-94.0) fL MCH (27.0-32.0) pg MCHC (33.0-38.0) g/dL RDW Coeff of Shi (11.0-15.0) % Plt Count (150-400) 10^3/uL Neut % (Auto) (35-85) % Lymph % (Auto) (10-55) % [place] % (Auto) (0-16) % Eos % (Auto) (0-5) % Baso % (Auto) (0-3) % Neut # (Auto) (1.80-7.00) 10^3/uL Lymph # (Auto) (1.00-4.80) 10^3/uL [place] # (Auto) (0.00-0.80) 10^3/uL Eos # (Auto) (0.00-0.45) 10^3/uL Baso # (Auto) 10^3/uL PT (9.7-12.3) SEC INR (0.92-1.18) Sodium (136-145) mEq/L Potassium (3.5-5.0) mEq/L Chloride (98-106) mEq/L Carbon Dioxide (21-32) mmol/L BUN (7-18) mg/dL Creatinine (0.7-1.3) mg/dL Est Cr Clr Drug Dosing mL/min Estimated GFR (MDRD) (>=60) mL/min Glucose (75-99) mg/dL POC Glucose 86 173 H 162 H (75-105) mg/dl Calcium (8.4-10.1) mg/dL C-Reactive Protein (0.2-0.8) mg/dL 06/16/20 Range/Units 20:35 WBC (5.0-10.0) 10^3/uL RBC (4.50-6.00) 10^6/uL Hgb (14.0-18.0) g/dL Hct (40.0-54.0) % MCV (82.0-94.0) fL MCH (27.0-32.0) pg MCHC (33.0-38.0) g/dL RDW Coeff of Shi (11.0-15.0) % Plt Count (150-400) 10^3/uL Neut % (Auto) (35-85) % Lymph % (Auto) (10-55) % [place] % (Auto) (0-16) % Eos % (Auto) (0-5) % Baso % (Auto) (0-3) % Neut # (Auto) (1.80-7.00) 10^3/uL Lymph # (Auto) (1.00-4.80) 10^3/uL [place] # (Auto) (0.00-0.80) 10^3/uL Eos # (Auto) (0.00-0.45) 10^3/uL Baso # (Auto) 10^3/uL PT (9.7-12.3) SEC INR (0.92-1.18) Sodium (136-145) mEq/L Potassium (3.5-5.0) mEq/L Chloride (98-106) mEq/L Carbon Dioxide (21-32) mmol/L BUN (7-18) mg/dL Creatinine (0.7-1.3) mg/dL Est Cr Clr Drug Dosing mL/min Estimated GFR (MDRD) (>=60) mL/min Glucose (75-99) mg/dL POC Glucose 125 H (75-105) mg/dl Calcium (8.4-10.1) mg/dL C-Reactive Protein (0.2-0.8) mg/dL Med Orders - Current: Current Medications Albuterol/Ipratropium (Duoneb 3.0-0.5 Mg/3 Ml) 3 ml NEB Q4H PRN PRN Reason: Dyspnea Albuterol/Ipratropium (Duoneb 3.0-0.5 Mg/3 Ml) 3 ml NEB TIDRT [facility] Last Admin: 06/16/20 20:37 Dose: 3 ml Documented by: Carvedilol (Coreg) 6.25 mg PO BID [facility] Last Admin: 06/16/20 19:37 Dose: 6.25 mg Documented by: Digoxin (Lanoxin) 62.5 mcg PO DAILY [facility] Last Admin: 06/16/20 08:33 Dose: 62.5 mcg Documented by: Dorzolamide HCl (Trusopt 2% Ophth Soln) 0 ml EYEBOTH BID [facility] Last Admin: 06/16/20 19:44 Dose: 1 drop Documented by: Finasteride (Proscar) 5 mg PO DAILY [facility] Last Admin: 06/16/20 08:33 Dose: 5 mg Documented by: Furosemide (Lasix) 40 mg IVPUSH BID@0800,1600 [facility] Last Admin: 06/16/20 15:49 Dose: 40 mg Documented by: Insulin Glargine (Lantus) 25 unit SUBCUT BEDTIME [facility] Last Admin: 06/16/20 20:38 Dose: 25 units Documented by: Insulin Human Lispro (Humalog) 10 unit SUBCUT BIDMEALS [facility] Last Admin: 06/16/20 18:01 Dose: 10 units Documented by: Latanoprost (Xalatan 0.005% Ophth Soln) 0 ml EYEBOTH BEDTIME [facility] Last Admin: 06/16/20 19:43 Dose: 1 drop Documented by: Losartan Potassium (Cozaar) 25 mg PO DAILY [facility] Last Admin: 06/16/20 10:54 Dose: 25 mg Documented by: Simvastatin (Zocor) 40 mg PO BEDTIME [facility] Last Admin: 06/16/20 19:36 Dose: 40 mg Documented by: Sodium Chloride (Saline Flush) 10 ml FLUSH ASDIRECTED PRN PRN Reason: Keep Vein Open Last Admin: 06/15/20 13:25 Dose: 10 ml Documented by: Tamsulosin HCl (Flomax) 0.4 mg PO BEDTIME [facility] Last Admin: 06/16/20 19:36 Dose: 0.4 mg Documented by: Discontinued Medications Furosemide (Lasix) 40 mg IVPUSH Q12H [facility] Last Admin: 06/15/20 13:24 Dose: 40 mg Documented by: - Exam General: Alert, Oriented HEENT: Mucous Membr. Moist/[place] Neck: Supple Lungs: Decreased Breath Sounds, Crackles Cardiovascular: Regular Rate, Regular Rhythm GI/Abdominal Exam: Normal Bowel Sounds, Soft, Non-Tender Extremities: Normal Inspection, Pedal Edema (1+) Skin: Warm, Dry Neurological: No New Focal Deficit Sepsis Event Note - Evaluation Sepsis Screening Result: No Definite Risk - Focused Exam Vital Signs: Vital Signs Temp Pulse Pulse Resp BP BP Pulse Ox 06/16/20 19:49 97.7 F 92 20 111/57 L 92 L 06/16/20 19:37 92 111/57 L 06/16/20 16:00 99.3 F 90 20 111/69 91 L 06/16/20 12:00 97.3 F 95 20 113/56 L 92 L 06/16/20 10:54 76 121/74 - Problem List & Annotations (1) CHF (congestive heart failure) SNOMED Code(s): 79678462 Code(s): I50.9 - HEART FAILURE, UNSPECIFIED Status: Chronic Current Visit: No Qualifiers: Heart failure type: systolic Heart failure chronicity: acute on chronic Qualified Code(s): I50.23 - Acute on chronic systolic (congestive) heart failure Annotation/Comment:: Acute on Chronic Stage 3 systolic heart failure, last known ejection fracture less than 20% - Problem List Review Problem List Initiated/Reviewed/Updated: Yes - Assessment Assessment:: Acute on chronic CHF, stage 3 - Plan Plan:: Patient admits to feeling better today. Is less dyspneic with exertion. Oxygen sat 91-92% on room air this am. Has diuresed well, 2000 ml. MInimal change in weight today. Edema improved. Patient did have echo in 2019, showed Ejection Fraction at 20%. Labs stable. INR 3.23. Creatinine 1.5. Will continue with IV Lasix BID. Ambulate and test for hypoxia with exertion. Repeat labs in am. 06-17-2020 Patient is doing well today. Ambulating in halls. Oxygen sats maintaining at 94% with ambulation. Weight is largely unchanged. Blood pressure tends to be low in am, meds held until later in the morning and able to tolerate then thereafter. Labs note WBC at 5.4. creatinine 1.4. Will continue with additional day of Lasix IV. Probable discharge home tomorrow.
[2020-06-17] MEDS: Furosemide 40 MG/4 ML VIAL IVPUSH SCH ×2 (08:00→16:05)
[2020-06-17] MEDS: Albuterol/Ipratropium 3.0-0.5 MG/3 ML Neb Soln NEB SCH ×3 (08:00→19:26)
[2020-06-17] MEDS: Digoxin 125 MCG Tab PO SCH (08:01)
[2020-06-17] MEDS: Finasteride 5 MG Tab PO SCH (08:03)
[2020-06-17] MEDS: Insulin Lispro 100 Units/ML 3 ML Vial SUBCUT SCH ×2 (08:20→17:32)
[2020-06-17] MEDS: Dorzolamide 2% Ophth Soln 10 ML Bottle EYEBOTH SCH ×2 (08:20→19:28)
--- NOTE | 2020-06-17 08:56 | PCM.PN ---
- General Info Date of Service: 06/17/20 Admission Dx/Problem (Free Text): CHF Exacerbation Hypoxia Functional Status: Reports: Pain Controlled, Tolerating Diet, Ambulating - Review of Systems General: Reports: Weakness, Fatigue HEENT: Denies: Ear Pain, Sinus Congestion, Rhinitis, Visual Changes Pulmonary: Reports: Shortness of Breath. Denies: Cough Cardiovascular: Reports: Edema. Denies: Chest Pain, Lightheadedness Gastrointestinal: Denies: Abdominal Pain, Nausea, Vomiting Genitourinary: Reports: No Symptoms Musculoskeletal: Reports: No Symptoms Skin: Reports: No Symptoms Neurological: Reports: Weakness - Patient Data Vitals - Most Recent: Last Vital Signs Temp 98.7 F 06/17/20 04:00 Pulse 79 06/17/20 08:01 Resp 18 06/17/20 04:00 BP 103/63 06/17/20 04:00 Pulse Ox 93 L 06/17/20 04:00 Weight - Most Recent: 180 lb 6.4 oz I&O - Last 24 Hours: Intake & Output 06/16/20 06/17/20 06/17/20 22:59 06:59 14:59 Intake Total 1700 360 Output Total 2000 975 Balance -300 -615 Lab Results Last 24 Hours: Laboratory Results - last 24 hr 06/16/20 06/16/20 06/16/20 Range/Units 12:34 17:27 20:35 WBC (5.0-10.0) 10^3/uL RBC (4.50-6.00) 10^6/uL Hgb (14.0-18.0) g/dL Hct (40.0-54.0) % MCV (82.0-94.0) fL MCH (27.0-32.0) pg MCHC (33.0-38.0) g/dL RDW Coeff of Shi (11.0-15.0) % Plt Count (150-400) 10^3/uL Add Manual Diff Neutrophils % (Manual) (35-85) % Lymphocytes % (Manual) (21-55) % Monocytes % (Manual) (2-12) % Eosinophils % (Manual) (0-5) % Basophils % (Manual) (0-3) % PT (9.7-12.3) SEC INR (0.92-1.18) Sodium (136-145) mEq/L Potassium (3.5-5.0) mEq/L Chloride (98-106) mEq/L Carbon Dioxide (21-32) mmol/L BUN (7-18) mg/dL Creatinine (0.7-1.3) mg/dL Est Cr Clr Drug Dosing mL/min Estimated GFR (MDRD) (>=60) mL/min Glucose (75-99) mg/dL POC Glucose 173 H 162 H 125 H (75-105) mg/dl Calcium (8.4-10.1) mg/dL C-Reactive Protein (0.2-0.8) mg/dL 06/17/20 06/17/20 06/17/20 Range/Units 06:55 06:55 06:55 WBC 5.4 (5.0-10.0) 10^3/uL RBC 3.94 L (4.50-6.00) 10^6/uL Hgb 9.8 L (14.0-18.0) g/dL Hct 33.9 L (40.0-54.0) % MCV 86.0 (82.0-94.0) fL MCH 24.9 L (27.0-32.0) pg MCHC 28.9 L (33.0-38.0) g/dL RDW Coeff of Shi 16.1 H (11.0-15.0) % Plt Count 125 L (150-400) 10^3/uL Add Manual Diff Yes Neutrophils % (Manual) 75 (35-85) % Lymphocytes % (Manual) 7 L (21-55) % Monocytes % (Manual) 13 H (2-12) % Eosinophils % (Manual) 2 (0-5) % Basophils % (Manual) 3 (0-3) % PT 19.7 H (9.7-12.3) SEC INR 1.96 H (0.92-1.18) Sodium 139 (136-145) mEq/L Potassium 3.7 (3.5-5.0) mEq/L Chloride 100 (98-106) mEq/L Carbon Dioxide 32 (21-32) mmol/L BUN 33 H (7-18) mg/dL Creatinine 1.4 H (0.7-1.3) mg/dL Est Cr Clr Drug Dosing 37.32 mL/min Estimated GFR (MDRD) 48 L (>=60) mL/min Glucose 78 (75-99) mg/dL POC Glucose (75-105) mg/dl Calcium 8.2 L (8.4-10.1) mg/dL C-Reactive Protein 3.7 H (0.2-0.8) mg/dL Med Orders - Current: Current Medications Albuterol/Ipratropium (Duoneb 3.0-0.5 Mg/3 Ml) 3 ml NEB Q4H PRN PRN Reason: Dyspnea Albuterol/Ipratropium (Duoneb 3.0-0.5 Mg/3 Ml) 3 ml NEB TIDRT [facility] [place] Last Admin: 06/17/20 08:00 Dose: 3 ml Documented by: Carvedilol (Coreg) 6.25 mg PO BID [facility] [place] Last Admin: 06/16/20 19:37 Dose: 6.25 mg Documented by: Digoxin (Lanoxin) 62.5 mcg PO DAILY [facility] [place] Last Admin: 06/17/20 08:01 Dose: 62.5 mcg Documented by: Dorzolamide HCl (Trusopt 2% Ophth Soln) 0 ml EYEBOTH BID [facility] [place] Last Admin: 06/17/20 08:20 Dose: 1 drop Documented by: Finasteride (Proscar) 5 mg PO DAILY [facility] [place] Last Admin: 06/17/20 08:03 Dose: 5 mg Documented by: Furosemide (Lasix) 40 mg IVPUSH BID@0800,1600 [facility] [place] Last Admin: 06/17/20 08:00 Dose: 40 mg Documented by: Insulin Glargine (Lantus) 25 unit SUBCUT BEDTIME [facility] [place] Last Admin: 06/16/20 20:38 Dose: 25 units Documented by: Insulin Human Lispro (Humalog) 10 unit SUBCUT BIDMEALS [facility] [place] Last Admin: 06/17/20 08:20 Dose: 10 units Documented by: Latanoprost (Xalatan 0.005% Ophth Soln) 0 ml EYEBOTH BEDTIME [facility] [place] Last Admin: 06/16/20 19:43 Dose: 1 drop Documented by: Losartan Potassium (Cozaar) 25 mg PO DAILY [facility] [place] Last Admin: 06/16/20 10:54 Dose: 25 mg Documented by: Simvastatin (Zocor) 40 mg PO BEDTIME [facility] [place] Last Admin: 06/16/20 19:36 Dose: 40 mg Documented by: Sodium Chloride (Saline Flush) 10 ml FLUSH ASDIRECTED PRN PRN Reason: Keep Vein Open Last Admin: 06/15/20 13:25 Dose: 10 ml Documented by: Tamsulosin HCl (Flomax) 0.4 mg PO BEDTIME [facility] [place] Last Admin: 06/16/20 19:36 Dose: 0.4 mg Documented by: Discontinued Medications Furosemide (Lasix) 40 mg IVPUSH Q12H [facility] [place] Last Admin: 06/15/20 13:24 Dose: 40 mg Documented by: - Exam General: Alert, Oriented HEENT: Mucous Membr. Moist/[place] Neck: Supple Lungs: Decreased Breath Sounds Cardiovascular: Regular Rate, Regular Rhythm GI/Abdominal Exam: Normal Bowel Sounds, Soft, Non-Tender Extremities: Normal Inspection, Pedal Edema (trace of edema right leg) Skin: Warm, Dry Neurological: No New Focal Deficit Sepsis Event Note - Evaluation Sepsis Screening Result: No Definite Risk - Focused Exam Vital Signs: Vital Signs Temp Pulse Pulse Resp BP Pulse Ox 06/17/20 08:01 79 06/17/20 04:00 98.7 F 90 18 103/63 93 L 06/16/20 23:53 98.7 F 81 18 80/31 L 93 L - Problem List & Annotations (1) CHF (congestive heart failure) SNOMED Code(s): 13857205 Code(s): I50.9 - HEART FAILURE, UNSPECIFIED Status: Chronic Current Visit: No Qualifiers: Heart failure type: systolic Heart failure chronicity: acute on chronic Qualified Code(s): I50.23 - Acute on chronic systolic (congestive) heart failure Annotation/Comment:: Acute on Chronic Stage 3 systolic heart failure, last known ejection fracture less than 20% - Problem List Review Problem List Initiated/Reviewed/Updated: Yes - Assessment Assessment:: Acute on chronic CHF, stage 3 - Plan Plan:: Patient admits to feeling better today. Is less dyspneic with exertion. Oxygen sat 91-92% on room air this am. Has diuresed well, 2000 ml. MInimal change in weight today. Edema improved. Patient did have echo in 2018, showed Ejection Fraction at 20%. Labs stable. INR 3.23. Creatinine 1.5. Will continue with IV Lasix BID. Ambulate and test for hypoxia with exertion. Repeat labs in am. 06-17-2020 Patient feeling good today. Did ambulate in the halls yesterday, sat remained 94% on room air. Is voiding well. Edema has improved. Lung sounds are clear but diminished throughout. WBC remains stable. INR 1.4. INR 1.96. Will continue with IV Lasix. Probable discharge home tomorrow.
[2020-06-17] MEDS: Losartan 25 MG Tab PO SCH (09:02)
[2020-06-17] MEDS: Carvedilol 6.25 MG Tab PO SCH ×2 (09:02→19:27)
[2020-06-17] MEDS: Simvastatin 40 MG Tab PO SCH (19:28)
[2020-06-17] MEDS: Tamsulosin 0.4 MG Cap.ER PO SCH (19:28)
[2020-06-17] MEDS: Latanoprost 0.005% Ophth Soln 2.5 ML Bottle EYEBOTH SCH (19:29)
[2020-06-17] MEDS: Insulin Glarg,Human.Rec.Analog 100 Unit/ML SUBCUT SCH (19:39)
[2020-06-18 08:05] VITALS: BP 117/78; PULSE 98
[2020-06-18] MEDS: Furosemide 40 MG/4 ML VIAL IVPUSH SCH (08:06)
[2020-06-18] MEDS: Losartan 25 MG Tab PO SCH (08:07)
[2020-06-18] MEDS: Finasteride 5 MG Tab PO SCH (08:07)
[2020-06-18] MEDS: Albuterol/Ipratropium 3.0-0.5 MG/3 ML Neb Soln NEB SCH (08:07)
[2020-06-18] MEDS: Carvedilol 6.25 MG Tab PO SCH (08:08)
[2020-06-18] MEDS: Digoxin 125 MCG Tab PO SCH (08:09)
[2020-06-18] MEDS: Insulin Lispro 100 Units/ML 3 ML Vial SUBCUT SCH (08:10)
[2020-06-18] MEDS: Dorzolamide 2% Ophth Soln 10 ML Bottle EYEBOTH SCH (08:16)
--- NOTE | 2020-06-18 10:58 | PCM.DCSUM1 ---
Discharge Summary - Hospital Course Free Text/Narrative:: Patient presented to see Frederick Carrasco for increased shortness of breath for 2 weeks. Had been compliant with his Lasix and nebs but was noting increased exertional dyspnea. History of CHF, last echo done in January of 2019 showed an ejection fraction around 20%. History of CAD with CABG in 2005. More tired, productive cough, weight gain, orthopnea and wheezing noted by patient. Lung sounds noted to have crackles over both lungs. COVID testing done and was negative. Chest xray showed venous congestion. Admitted and started on IV Lasix BID. Diagnosis: Stroke: No Modified Wy[place] Scale: No Symptoms at All Modified [place] Scale Score: 0 - Discharge Data Discharge Date: 06/18/20 Discharge Disposition: Home, Self-Care 01 Condition: Fair - Referral to Home Health Primary Care Physician: Vasile Salinas MD - Discharge Diagnosis/Problem(s) (1) CHF (congestive heart failure) SNOMED Code(s): 05438164 ICD Code: I50.9 - HEART FAILURE, UNSPECIFIED Status: Chronic Problem Details: Acute on Chronic Stage 3 systolic heart failure, last known ejection fracture less than 20% Qualifiers: Heart failure type: systolic Heart failure chronicity: acute on chronic Qualified Code(s): I50.23 - Acute on chronic systolic (congestive) heart failure - Patient Summary/Data Complications: none Hospital Course: Patient is feeling much better. Is ambulating now and tolerating well. Oxygen sats are greater than 94% while ambulating. Lung sounds are diminished but clear now. Edema is much improved, only trace in RLE. Appetite is good. Has been diuresing well. Weight is down to 174# from admit which is more near his normal weight. Will discharge him home on increased Lasix. Typically takes 60 mg daily, will increase to 80 mg. INR was high on admission, dose adjusted and explained to . Follow up with Dr. Salinas in 10 days, repeat INR prior to visit. - Patient Instructions Diet: Low Sodium Activity: As Tolerated - Discharge Plan *PRESCRIPTION DRUG MONITORING PROGRAM REVIEWED*: No *COPY OF PRESCRIPTION DRUG MONITORING REPORT IN PATIENT [place]: No Prescriptions/Med Rec: Warfarin [Coumadin] 1.5 mg PO MoTuWeThFr@1730 #30 tablet Warfarin [Coumadin] 3 mg PO SuSa@1730 #30 tablet Furosemide 80 mg PO DAILY #30 tablet Home Medications: Home Meds Brinzolamide [Azopt 1% Ophth Susp] 1 drop EYEBOTH BID 06/15/20 [History] Digoxin 62.5 mg PO DAILY 06/15/20 [History] Finasteride [Proscar] 5 mg PO DAILY 06/15/20 [History] Flaxseed Oil 1,000 mg PO DAILY 06/15/20 [History] Insulin Aspart [NovoLOG] 10 unit SUBCUT BID 06/15/20 [History] Insulin Detemir [Levemir Flextouch] 25 unit SUBCUT BEDTIME 06/15/20 [History] Ipratropium/Albuterol Sulfate [Iprat-Albut 0.5-3(2.5) mg/3 ml] 3 ml IH Q4H PRN 06/15/20 [History] Losartan [Cozaar] 25 mg PO DAILY 06/15/20 [History] Simvastatin 40 mg PO BEDTIME 06/15/20 [History] Tamsulosin HCl 1.4 mg PO BEDTIME 06/15/20 [History] Travoprost 1 drop EYEBOTH BID 06/15/20 [History] carvediloL [Carvedilol] 6.25 mg PO BID 06/15/20 [History] Furosemide 80 mg PO DAILY #30 tablet 06/18/20 [Rx] Warfarin [Coumadin] 1.5 mg PO MoTuWeThFr@1730 #30 tablet 06/18/20 [Rx] Warfarin [Coumadin] 3 mg PO SuSa@1730 #30 tablet 06/18/20 [Rx] Referrals: Vasile Salinas MD [Primary Care Provider] - (Follow up with Dr. Salinas in 10 days; INR prior to appointment ) - Discharge Summary/Plan Comment DC Time >30 min.: No - General Info Date of Service: 06/19/20 Admission Dx/Problem (Free Text: CHF Exacerbation Hypoxia Functional Status: Reports: Pain Controlled, Tolerating Diet, Ambulating - Review of Systems General: Reports: Weakness, Fatigue HEENT: Reports: Rhinitis Pulmonary: Reports: Shortness of Breath, Cough Cardiovascular: Reports: Edema. Denies: Chest Pain, Lightheadedness Gastrointestinal: Denies: Abdominal Pain, Nausea, Vomiting Genitourinary: Reports: No Symptoms Musculoskeletal: Reports: No Symptoms Skin: Reports: No Symptoms Neurological: Reports: No Symptoms - Patient Data Vitals - Most Recent: Last Vital Signs Temp 97.9 F 06/18/20 08:00 Pulse 98 06/18/20 08:09 Resp 20 06/18/20 08:00 BP 117/78 06/18/20 08:08 Pulse Ox 92 L 06/18/20 08:00 Weight - Most Recent: 174 lb 12.8 oz I&O - Last 24 hours: Intake & Output 06/17/20 06/18/20 06/18/20 22:59 06:59 14:59 Intake Total 1600 600 Output Total 2500 800 Balance -900 -200 Lab Results - Last 24 hrs: Laboratory Results - last 24 hr 06/17/20 06/17/20 06/17/20 Range/Units 07:58 11:35 11:55 POC Glucose 74 L 84 83 (75-105) mg/dl 06/17/20 06/17/20 Range/Units 16:12 19:36 POC Glucose 151 H 185 H (75-105) mg/dl Med Orders - Current: Current Medications Albuterol/Ipratropium (Duoneb 3.0-0.5 Mg/3 Ml) 3 ml NEB Q4H PRN PRN Reason: Dyspnea Albuterol/Ipratropium (Duoneb 3.0-0.5 Mg/3 Ml) 3 ml NEB TIDRT [facility] Last Admin: 06/18/20 08:07 Dose: 3 ml Documented by: Carvedilol (Coreg) 6.25 mg PO BID [facility] Last Admin: 06/18/20 08:08 Dose: 6.25 mg Documented by: Digoxin (Lanoxin) 62.5 mcg PO DAILY [facility] Last Admin: 06/18/20 08:09 Dose: 62.5 mcg Documented by: Dorzolamide HCl (Trusopt 2% Ophth Soln) 0 ml EYEBOTH BID [facility] Last Admin: 06/18/20 08:16 Dose: 1 drop Documented by: Finasteride (Proscar) 5 mg PO DAILY [facility] Last Admin: 06/18/20 08:07 Dose: 5 mg Documented by: Furosemide (Lasix) 40 mg IVPUSH BID@0800,1600 [facility] Last Admin: 06/18/20 08:06 Dose: 40 mg Documented by: Insulin Glargine (Lantus) 25 unit SUBCUT BEDTIME [facility] Last Admin: 06/17/20 19:39 Dose: 25 units Documented by: Insulin Human Lispro (Humalog) 10 unit SUBCUT BIDMEALS [facility] Last Admin: 06/18/20 08:10 Dose: Not Given Documented by: Latanoprost (Xalatan 0.005% Ophth Soln) 0 ml EYEBOTH BEDTIME [facility] Last Admin: 06/17/20 19:29 Dose: 1 drop Documented by: Losartan Potassium (Cozaar) 25 mg PO DAILY [facility] Last Admin: 06/18/20 08:07 Dose: 25 mg Documented by: Simvastatin (Zocor) 40 mg PO BEDTIME [facility] Last Admin: 06/17/20 19:28 Dose: 40 mg Documented by: Sodium Chloride (Saline Flush) 10 ml FLUSH ASDIRECTED PRN PRN Reason: Keep Vein Open Last Admin: 06/15/20 13:25 Dose: 10 ml Documented by: Tamsulosin HCl (Flomax) 0.4 mg PO BEDTIME [facility] Last Admin: 06/17/20 19:28 Dose: 0.4 mg Documented by: Warfarin Sodium (Coumadin) 1.5 mg PO MoTuWeThFr@1730 [facility] Last Admin: 06/17/20 17:32 Dose: 1.5 mg Documented by: Warfarin Sodium (Coumadin) 3 mg PO SuSa@1730 [facility] Discontinued Medications Furosemide (Lasix) 40 mg IVPUSH Q12H [facility] Last Admin: 06/15/20 13:24 Dose: 40 mg Documented by: - Exam General: Reports: Alert, Oriented HEENT: Reports: Mucous Membr. Moist/[place] Neck: Reports: Supple Lungs: Reports: Decreased Breath Sounds Cardiovascular: Reports: Irregular Rhythm GI/Abdominal Exam: Normal Bowel Sounds, Soft, Non-Tender Extremities: Normal Inspection, Pedal Edema Skin: Reports: Warm, Dry Neurological: Reports: No New Focal Deficit
[2020-06-18] MEDS ORDERED: Warfarin 2 MG Tab PO SCH (17:30)
== END 2020-06-18 12:03 | disposition home or self-care (01) | DRG 293 ==
LOC: CC.FCMC 11:13 → CC.MS 11:58 → UNDOADMIN 11:58 → CC.MS 13:03
PROVIDERS: ADMIT Physician Assistant Medical; ATTEND Family Medicine
DX: I11.0 Hypertensive heart disease with heart failure (principal); R09.02 Hypoxemia; I50.23 Acute on chronic systolic (congestive) heart failure; Z20.828 Contact with and (suspected) exposure to other viral communicable diseases; I48.0 Paroxysmal atrial fibrillation; N40.0 Benign prostatic hyperplasia without lower urinary tract symptoms; K21.9 Gastro-esophageal reflux disease without esophagitis; E11.9 Type 2 diabetes mellitus without complications; E55.9 Vitamin D deficiency, unspecified; Z95.1 Presence of aortocoronary bypass graft; I25.10 Atherosclerotic heart disease of native coronary artery without angina pectoris
CPT/HCPCS: 36415; 71046; 80048; 80053; 82962; 83605; 83880; 85025; 85610; 86140; 93005; 94640; A9270-GY; J1815-GY; J1940; J7620-GY; U0002

== ENCOUNTER 2021-11-22 11:57 | Inpatient (IN) | payer MEDICARE, BC ==
[2021-11-22 12:40] LABS: CHLORIDE,CL 97 mEq/L (98-106); SODIUM,NA 136 mEq/L (136-145)
[2021-11-22] MEDS ORDERED: Ondansetron 4 MG Tab.DIS PO PRN (13:55)
[2021-11-22] MEDS ORDERED: Sodium Chloride 0.9% 10 ML Syringe FLUSH PRN (13:55)
[2021-11-22 13:59] LABS: CORONAVIRUS COVID-19 NAA NEGATIVE (NEGATIVE)
[2021-11-22] MEDS ORDERED: Furosemide 40 MG/4 ML VIAL IVPUSH ONE ×4 (14:07→20:00)
[2021-11-22] MEDS ORDERED: Albuterol/Ipratropium 3.0-0.5 MG/3 ML Neb Soln INH PRN (15:14)
[2021-11-22] MEDS: Albuterol/Ipratropium 3.0-0.5 MG/3 ML Neb Soln NEB SCH ×2 (15:53→20:18)
[2021-11-22] MEDS: cefTRIAXone 1 GM Vial IVPUSH SCH (15:53)
[2021-11-22] MEDS: Azithromycin 500 MG in Sodium Chloride 0.9% 250 ML IV SCH (15:58)
[2021-11-22] MEDS: Carvedilol 6.25 MG Tab PO SCH (16:46)
[2021-11-22] MEDS ORDERED: Furosemide 40 MG/4 ML VIAL ONE (16:58)
[2021-11-22] MEDS ORDERED: Sodium Chloride 0.9% 500 ML IV ONE (17:15)
[2021-11-22] MEDS: Insulin Lispro 100 Units/ML 3 ML Vial SUBCUT SCH (17:38)
[2021-11-22] MEDS: Dorzolamide 2% Ophth Soln 10 ML Bottle EYEBOTH SCH (20:18)
[2021-11-22] MEDS: Simvastatin 40 MG Tab PO SCH (20:18)
[2021-11-22] MEDS: Latanoprost 0.005% Ophth Soln 2.5 ML Bottle EYEBOTH SCH (20:18)
[2021-11-22] MEDS: Furosemide 40 MG/4 ML VIAL IVPUSH SCH (20:18)
[2021-11-22] MEDS: Insulin Glarg,Human.Rec.Analog 100 Unit/ML SUBCUT SCH (20:19)
[2021-11-22] MEDS: Tamsulosin 0.4 MG Cap.ER PO SCH (22:35)
[2021-11-23] MEDS: Furosemide 40 MG/4 ML VIAL IVPUSH SCH ×2 (07:30→20:06)
[2021-11-23] MEDS: Albuterol/Ipratropium 3.0-0.5 MG/3 ML Neb Soln NEB SCH ×4 (07:30→20:00)
[2021-11-23] MEDS: Insulin Lispro 100 Units/ML 3 ML Vial SUBCUT SCH ×2 (08:29→17:35)
[2021-11-23] MEDS: Dorzolamide 2% Ophth Soln 10 ML Bottle EYEBOTH SCH ×3 (08:30→20:04)
[2021-11-23] MEDS: Carvedilol 6.25 MG Tab PO SCH ×2 (09:23→17:34)
[2021-11-23] MEDS: Losartan 25 MG Tab PO SCH (09:23)
[2021-11-23] MEDS: Finasteride 5 MG Tab PO SCH (10:17)
[2021-11-23] MEDS: Digoxin 125 MCG Tab PO SCH (12:12)
[2021-11-23] MEDS: Azithromycin 500 MG in Sodium Chloride 0.9% 250 ML IV SCH (15:25)
[2021-11-23] MEDS: cefTRIAXone 1 GM Vial IVPUSH SCH (15:29)
[2021-11-23] MEDS: Tamsulosin 0.4 MG Cap.ER PO SCH (20:00)
[2021-11-23] MEDS: Melatonin 3 MG Tab PO SCH (20:00)
[2021-11-23] MEDS: Simvastatin 40 MG Tab PO SCH (20:03)
[2021-11-23] MEDS: Latanoprost 0.005% Ophth Soln 2.5 ML Bottle EYEBOTH SCH (20:04)
[2021-11-23] MEDS: Insulin Glarg,Human.Rec.Analog 100 Unit/ML SUBCUT SCH (20:17)
[2021-11-24] MEDS: Finasteride 5 MG Tab PO SCH (07:52)
[2021-11-24] MEDS: Losartan 25 MG Tab PO SCH (07:52)
[2021-11-24] MEDS: Furosemide 40 MG/4 ML VIAL IVPUSH SCH ×2 (07:52→19:44)
[2021-11-24] MEDS: Albuterol/Ipratropium 3.0-0.5 MG/3 ML Neb Soln NEB SCH ×4 (07:53→19:40)
[2021-11-24] MEDS: Carvedilol 6.25 MG Tab PO SCH ×3 (07:54→18:43)
[2021-11-24] MEDS: Insulin Lispro 100 Units/ML 3 ML Vial SUBCUT SCH ×2 (08:18→18:38)
[2021-11-24] MEDS: Dorzolamide 2% Ophth Soln 10 ML Bottle EYEBOTH SCH ×3 (08:19→19:48)
[2021-11-24] MEDS: methylPREDNISolone Sodium Succinate 125 MG/2 ML SDV IVPUSH SCH (11:00)
[2021-11-24] MEDS: Digoxin 125 MCG Tab PO SCH (11:59)
[2021-11-24] MEDS: cefTRIAXone 1 GM Vial IVPUSH SCH (15:21)
[2021-11-24] MEDS: Azithromycin 500 MG in Sodium Chloride 0.9% 250 ML IV SCH (15:21)
[2021-11-24] MEDS: Fluconazole 100 MG Tab PO SCH (18:42)
[2021-11-24] MEDS: Tamsulosin 0.4 MG Cap.ER PO SCH (19:43)
[2021-11-24] MEDS: Simvastatin 40 MG Tab PO SCH (19:43)
[2021-11-24] MEDS: Melatonin 3 MG Tab PO SCH (19:43)
[2021-11-24] MEDS: Latanoprost 0.005% Ophth Soln 2.5 ML Bottle EYEBOTH SCH (19:48)
[2021-11-24] MEDS: Insulin Glarg,Human.Rec.Analog 100 Unit/ML SUBCUT SCH (19:55)
[2021-11-25] MEDS: Furosemide 40 MG/4 ML VIAL IVPUSH SCH ×2 (08:03→19:38)
[2021-11-25] MEDS: Losartan 25 MG Tab PO SCH (08:04)
[2021-11-25] MEDS: Finasteride 5 MG Tab PO SCH (08:04)
[2021-11-25] MEDS: Albuterol/Ipratropium 3.0-0.5 MG/3 ML Neb Soln NEB SCH ×4 (08:04→19:36)
[2021-11-25] MEDS: Carvedilol 6.25 MG Tab PO SCH ×2 (08:04→17:15)
[2021-11-25] MEDS: Dorzolamide 2% Ophth Soln 10 ML Bottle EYEBOTH SCH ×3 (08:05→19:41)
[2021-11-25] MEDS: Insulin Lispro 100 Units/ML 3 ML Vial SUBCUT SCH ×2 (08:05→17:16)
[2021-11-25] MEDS ORDERED: Levofloxacin/Dextrose 5%-Water 750 MG in Premix Bag 1 BAG IV SCH (09:00)
[2021-11-25] MEDS: methylPREDNISolone Sodium Succinate 125 MG/2 ML SDV IVPUSH SCH (09:16)
[2021-11-25] MEDS: Digoxin 125 MCG Tab PO SCH (12:27)
[2021-11-25] MEDS: Warfarin 2 MG Tab PO SCH (12:27)
[2021-11-25] MEDS: Fluconazole 100 MG Tab PO SCH (17:16)
[2021-11-25] MEDS: Simvastatin 40 MG Tab PO SCH (19:37)
[2021-11-25] MEDS: Tamsulosin 0.4 MG Cap.ER PO SCH (19:37)
[2021-11-25] MEDS: Melatonin 3 MG Tab PO SCH (19:37)
[2021-11-25] MEDS: Latanoprost 0.005% Ophth Soln 2.5 ML Bottle EYEBOTH SCH (19:41)
[2021-11-25] MEDS: Insulin Glarg,Human.Rec.Analog 100 Unit/ML SUBCUT SCH (19:49)
[2021-11-26] MEDS: Albuterol/Ipratropium 3.0-0.5 MG/3 ML Neb Soln NEB SCH ×2 (07:44→11:38)
[2021-11-26] MEDS: Losartan 25 MG Tab PO SCH (07:44)
[2021-11-26] MEDS: Furosemide 40 MG/4 ML VIAL IVPUSH SCH (07:44)
[2021-11-26] MEDS: Dorzolamide 2% Ophth Soln 10 ML Bottle EYEBOTH SCH (07:45)
[2021-11-26] MEDS: Carvedilol 6.25 MG Tab PO SCH (07:45)
[2021-11-26] MEDS: Finasteride 5 MG Tab PO SCH (07:45)
[2021-11-26] MEDS: Insulin Lispro 100 Units/ML 3 ML Vial SUBCUT SCH (07:45)
[2021-11-26] MEDS: Digoxin 125 MCG Tab PO SCH (11:38)
[2021-11-26] MEDS: Warfarin 2 MG Tab PO SCH (11:38)
[2021-11-26] MEDS: methylPREDNISolone Sodium Succinate 125 MG/2 ML SDV IVPUSH SCH (11:38)
[2021-11-26 11:44] VITALS: BP 119/75; PULSE 94
== END 2021-11-26 13:24 | disposition swing bed (61) | DRG 193 ==
LOC: CC.FCMC 11:57 → UNDOADMIN 13:38 → CC.MS 13:38
PROVIDERS: ADMIT Physician Assistant Medical; ATTEND Family Medicine
DX: J18.9 Pneumonia, unspecified organism (principal); I50.23 Acute on chronic systolic (congestive) heart failure; I11.0 Hypertensive heart disease with heart failure; I48.0 Paroxysmal atrial fibrillation; E78.00 Pure hypercholesterolemia, unspecified; K21.9 Gastro-esophageal reflux disease without esophagitis; E11.42 Type 2 diabetes mellitus with diabetic polyneuropathy; R33.9 Retention of urine, unspecified; Z96.649 Presence of unspecified artificial hip joint; Z20.822 Contact with and (suspected) exposure to COVID-19; Z88.6 Allergy status to analgesic agent; Z88.8 Allergy status to other drugs, medicaments and biological substances; Z79.4 Long term (current) use of insulin; Z79.01 Long term (current) use of anticoagulants; Z79.899 Other long term (current) drug therapy; Z95.2 Presence of prosthetic heart valve; I25.2 Old myocardial infarction; Z86.73 Personal history of transient ischemic attack (TIA), and cerebral infarction without residual deficits; Z95.5 Presence of coronary angioplasty implant and graft
CPT/HCPCS: 0240U; 36415; 71046; 80053; 82550; 82947; 83605; 83880; 84484; 85025; 85610; 86140; 87040; 87070; 87077; 87186; 87205; 93005; 93010; 94640; 97161-GP; 99223; 99232; 99233; 99239; A9270-GY; J0456; J0696; J1815-GY; J1940; J1956; J2930; J7040; J7050; J7620-GY

== ENCOUNTER 2021-11-26 13:38 | Inpatient (IN) | payer MEDICARE, BC ==
[2021-11-26] MEDS ORDERED: 50% Dextrose in Water 50 ML Syringe IVPUSH PRN (13:50)
[2021-11-26] MEDS ORDERED: Ondansetron 4 MG Tab.DIS PO PRN (13:50)
[2021-11-26] MEDS ORDERED: Albuterol/Ipratropium 3.0-0.5 MG/3 ML Neb Soln INH PRN (13:50)
[2021-11-26] MEDS ORDERED: Sodium Chloride 0.9% 10 ML Syringe FLUSH PRN ×2 (13:50)
[2021-11-26] MEDS ORDERED: Glucagon,Human Recombinant 1 MG Vial IM PRN (13:50)
[2021-11-26] MEDS ORDERED: Furosemide 40 MG/4 ML VIAL IVPUSH ONE (13:50)
[2021-11-26] MEDS: Dorzolamide 2% Ophth Soln 10 ML Bottle EYEBOTH SCH ×2 (15:27→19:41)
[2021-11-26] MEDS: Albuterol/Ipratropium 3.0-0.5 MG/3 ML Neb Soln NEB SCH ×2 (16:02→19:39)
[2021-11-26] MEDS: Furosemide 40 MG/4 ML VIAL IVPUSH SCH (16:02)
[2021-11-26] MEDS ORDERED: Fluconazole 100 MG Tab PO SCH (17:30)
[2021-11-26] MEDS: Carvedilol 6.25 MG Tab PO SCH (17:42)
[2021-11-26] MEDS: Insulin Lispro 100 Units/ML 3 ML Vial SUBCUT SCH (17:46)
[2021-11-26] MEDS ORDERED: Insulin Glarg,Human.Rec.Analog 100 Unit/ML SUBCUT SCH (20:00)
[2021-11-26] MEDS ORDERED: Melatonin 3 MG Tab PO SCH (20:00)
[2021-11-26] MEDS ORDERED: Simvastatin 40 MG Tab PO SCH (20:00)
[2021-11-26] MEDS ORDERED: Tamsulosin 0.4 MG Cap.ER PO SCH (20:00)
[2021-11-26] MEDS ORDERED: Latanoprost 0.005% Ophth Soln 2.5 ML Bottle EYEBOTH SCH (20:00)
[2021-11-27 07:52] VITALS: BP 112/72
[2021-11-27] MEDS: Carvedilol 6.25 MG Tab PO SCH (07:54)
[2021-11-27] MEDS: Furosemide 40 MG/4 ML VIAL IVPUSH SCH (07:55)
[2021-11-27] MEDS: Insulin Lispro 100 Units/ML 3 ML Vial SUBCUT SCH (07:56)
[2021-11-27] MEDS: Dorzolamide 2% Ophth Soln 10 ML Bottle EYEBOTH SCH (07:56)
[2021-11-27] MEDS: Albuterol/Ipratropium 3.0-0.5 MG/3 ML Neb Soln NEB SCH ×2 (07:56→11:55)
[2021-11-27] MEDS ORDERED: Finasteride 5 MG Tab PO SCH (08:00)
[2021-11-27] MEDS ORDERED: methylPREDNISolone Sodium Succinate 125 MG/2 ML SDV IVPUSH SCH ×2 (08:00→10:00)
[2021-11-27] MEDS ORDERED: Losartan 25 MG Tab PO SCH (08:00)
[2021-11-27] MEDS ORDERED: Levofloxacin/Dextrose 5%-Water 750 MG in Premix Bag 1 BAG IV SCH (09:00)
[2021-11-27 11:56] VITALS: PULSE 86
[2021-11-27] MEDS ORDERED: Digoxin 125 MCG Tab PO SCH (12:00)
[2021-11-29] MEDS ORDERED: Levofloxacin 500 MG Tab PO SCH (12:30)
[2021-12-02] MEDS ORDERED: Warfarin 2 MG Tab PO SCH (12:00)
== END 2021-11-27 13:03 | disposition home or self-care (01) | DRG 177 ==
LOC: CC.MS 13:38 → UNDOADMIN 13:38 → CC.MS 13:56
PROVIDERS: ADMIT Physician Assistant Medical; ATTEND Nurse Practitioner Family
DX: J15.1 Pneumonia due to Pseudomonas (principal); I50.23 Acute on chronic systolic (congestive) heart failure; Z79.4 Long term (current) use of insulin; Z79.01 Long term (current) use of anticoagulants; Z79.899 Other long term (current) drug therapy
CPT/HCPCS: 36415; 82947; 85610; 94640; 97110-GP; A9270-GY; J1940; J1956; J2930; J7620-GY